=== PATIENT | male | born 1975 | race Hispanic/Latino ===

== ENCOUNTER 2016-11-25 14:04 | Inpatient (IN) | payer OTHER ==
[2016-11-25] MEDS ORDERED: NACL 0.9% 1000 ML 1,000 ML IV ONE ×2 (14:31→23:28)
[2016-11-25] MEDS ORDERED: ZOFRAN IV ONE (14:42)
[2016-11-25] MEDS ORDERED: SUBLIMAZE IV ONE (14:42)
[2016-11-25 15:23] LABS: Hemoglobin 14.2 gm/dl (11.8-15.2); Mean Corpuscular HGB Conc 34 % (32-34); Mean Corpuscular Hemoglobin 28 pg (28-32); Mean Corpuscular Volume 84 fl (84-94); Platelet Count 440 K/mm3 (140-440); Red Blood Count 4.99 M/mm3 (3.65-5.03)
[2016-11-25 15:31] LABS: White Blood Count 24.5 K/mm3 (4.5-11.0)
[2016-11-25 15:33] LABS: INR 1.07 (0.87-1.13)
[2016-11-25 15:34] LABS: Partial Thromboplastin Time 25.2 Sec. (24.2-36.6)
--- NOTE | 2016-11-25 15:37 | Emergency Department Report ---
ED GI Bleed HPI - General Chief complaint: GI Bleed Stated complaint: ABD PAIN Time Seen by Provider: 11/25/16 14:33 Source: patient, family, RN notes reviewed Mode of arrival: Ambulatory Limitations: No Limitations - History of Present Illness Initial comments: 40-year-old male presents to the emergency department being of abdominal pain and vomiting blood. Patient states he began having abdominal pain 2 days ago. Pain got worse this morning and he was seen at another emergency department. He was ultimately discharged and began vomiting coffee-ground emesis. Patient is complaining of sharp upper abdominal pain and is now also complaining of pressure in his chest. There are no other complaints. MD complaint: coffee ground emesis -: This morning Location: LUQ, epigastric Radiation: chest Severity scale (0 -10): 6 Quality: sharp Consistency: constant Improves with: none Worsens with: none Context: history of GI bleed, alcohol abuse Associated Symptoms: abdominal pain, nausea, vomiting Treatments Prior to Arrival: none - Related Data Home Medications Medication Instructions Recorded Confirmed Last Taken No Known Home Medications [No 11/25/16 11/25/16 Unknown Reported Home Medications] Allergies Allergy/AdvReac Type Severity Reaction Status Date / Time No Known Allergies Allergy Verified 11/25/16 14:37 ED Review of Systems ROS: Stated complaint: ABD PAIN Other details as noted in HPI Comment: All other systems reviewed and negative Cardiovascular: chest pain Gastrointestinal: abdominal pain, nausea, vomiting, hematemesis ED Past Medical Hx - Past Medical History Previous Medical History?: Yes Hx Hypertension: Yes Additional medical history: stomach ulcers - Surgical History Past Surgical History?: No - Family History Family history: no significant - Social History Smoking Status: Current Every Day Smoker Substance Use Type: Alcohol - Medications Home Medications: Home Medications Medication Instructions Recorded Confirmed Last Taken Type No Known Home Medications [No 11/25/16 11/25/16 Unknown History Reported Home Medications] ED Physical Exam - General Limitations: No Limitations General appearance: alert, in no apparent distress - Head Head exam: Present: atraumatic, normocephalic - Eye Eye exam: Present: normal appearance, PERRL, EOMI - ENT ENT exam: Present: normal orophraynx, mucous membranes moist, other (dried blood noted on the lips. There is also dark blood in the patient's malcolm) - Neck Neck exam: Present: normal inspection, full ROM. Absent: tenderness - Respiratory Respiratory exam: Present: normal lung sounds bilaterally. Absent: respiratory distress - Cardiovascular Cardiovascular Exam: Present: normal rhythm, tachycardia, normal heart sounds - GI/Abdominal GI/Abdominal exam: Present: soft, tenderness (mild epigastric and left upper quadrant tenderness to palpation), normal bowel sounds. Absent: distended, guarding, rebound - Extremities Exam Extremities exam: Present: normal inspection, full ROM. Absent: tenderness - Back Exam Back exam: Present: normal inspection, full ROM. Absent: tenderness - Neurological Exam Neurological exam: Present: alert, oriented X3. Absent: motor sensory deficit - Skin Skin exam: Present: warm, dry, intact ED Course Vital Signs 11/25/16 14:23 Temperature 98 F Pulse Rate 114 H Respiratory 16 Rate Blood Pressure 83/59 O2 Sat by Pulse 93 Oximetry ED Medical Decision Making - Lab Data Result diagrams: 11/25/16 14:54 11/25/16 14:54 - Medical Decision Making Lab results reviewed and discussed with the patient and family. After IV fluids , the patient's blood pressure has improved to a systolic of 130. He does remain tachycardic. Gastroenterology, Dr. Angel, is being consulted. Patient is to be admitted by the hospitalist. - Differential Diagnosis GI bleed, PUD, perforated ulcer, anemia Critical care attestation.: If time is entered above; I have spent that time in minutes in the direct care of this critically ill patient, excluding procedure time. ED Disposition Clinical Impression: Acute upper GI bleed Disposition: OP ADMITTED IP TO THIS HOSP Is pt being admited?: Yes Condition: Stable Forms: Accompanied Note Time of Disposition: 15:49
[2016-11-25 15:46] LABS: Alanine Aminotransferase 16 units/L (7-56); Albumin 4.1 g/dL (3.9-5); Albumin/Globulin Ratio 1.7 %; Alkaline Phosphatase 71 units/L (35-129); Anion Gap 17 mmol/L; Blood Urea Nitrogen 16 mg/dL (9-20); Carbon Dioxide 34 mmol/L (22-30); Chloride 96.1 mmol/L (98-107); Glucose 185 mg/dL (75-100); Lipase 12 units/L (13-60); Potassium 3.8 mmol/L (3.6-5.0); Sodium 143 mmol/L (137-145); Total Protein 6.5 g/dL (6.3-8.2)
--- NOTE | 2016-11-25 16:24 | XRay Report ---
Single view chest: History: Chest pain. Findings: Normal cardiomediastinal silhouette clear trachea is midline. No consolidation, pneumothorax or pleural effusion. Impression: No acute cardiopulmonary findings.
[2016-11-25 16:54] LABS: Basophils % (Manual) 0 % (0.0-1.8); Blastocytes % (Manual) 0 %; Eosinophils % (Manual) 0 % (0.0-4.3)
[2016-11-25 16:55] LABS: Anisocytosis 1+; Diff Status Complete; Large Platelets 1+; Platelet Estimate Consistent w Auto
--- NOTE | 2016-11-25 16:59 | Gastroenterology Consultation ---
History of Present Illness - Reason for Consult Consult date: 11/25/16 Hematemesis Requesting physician: CHU CRUZ - History of Present Illness The patient is a 40 yo male admitted with hematemesis. He is homeless and presented to [facility] earlier today for abdominal pain and hematemesis after substance abuse and EtOH abuse. He was told his labs were normal and was d/c' d. He came to our ER because he said he was still hurting. Today, after a dose of fentanyl, he appears comfortable without distress. He was hypotensive and tachycardic on admit, but it is not clear when his last meal was. He says he had EtOH to drink today but no solid food since at least yesterday. He denies Rx medications, and denies NSAIDs. He thinks he had an ulcer a few years ago, but does not describe an endoscopy as to how the dx was made. He denies chronic heartburn or dysphagia. He has no family hx of GI malignancy or ulcer. He has not blood in his stool. Past History Past Medical History: other (Ulcers, substance abuse) Past Surgical History: No surgical history Social history: smoking, alcohol abuse, other (Homeless, MJ abuse) Family history: no significant family history Medications and Allergies Allergies Allergy/AdvReac Type Severity Reaction Status Date / Time No Known Allergies Allergy Verified 11/25/16 14:37 Home Medications Medication Instructions Recorded Confirmed Last Taken Type No Known Home Medications [No 11/25/16 11/25/16 Unknown History Reported Home Medications] Active Meds: Active Medications Sodium Chloride (Nacl 0.9% 1000 Ml) 1,000 mls @ 250 mls/hr IV ONCE ONE Stop: 11/25/16 18:30 Last Admin: 11/25/16 15:38 Dose: 250 mls/hr Lorazepam (Ativan) 2 mg IV Q1H PRN PRN Reason: CIWA-Ar 8-15 Lorazepam (Ativan) 4 mg IV Q1H PRN PRN Reason: CIWA-Ar 16-25 Lorazepam (Ativan) 4 mg IV Q15MIN PRN PRN Reason: CIWA-Ar >25 Stop: 11/30/16 16:51 Multivitamins/Minerals (Theragran-M Tab) 1 each PO QDAY KAYLEE Pantoprazole Sodium (Protonix) 40 mg IV BID KAYLEE Review of Systems - Review of Systems All systems: negative (as noted in the HPI) Exam - Constitutional Vital Signs: Temp Pulse Resp BP Pulse Ox 98 F 114 H 16 83/59 93 11/25/16 14:23 11/25/16 14:23 11/25/16 14:23 11/25/16 14:23 11/25/16 14:23 General appearance: no acute distress, disheveled - EENT Eyes: PERRL, EOM intact ENT: hearing intact, no thrush, other (Dried blood in malcolm) - Neck Neck: supple, normal ROM - Respiratory Respiratory effort: normal Respiratory: bilateral: CTA - Cardiovascular Heart Rate: 120 Rhythm: regular Heart Sounds: Present: S1 & S2 Extremities: no ischemia, No edema - Gastrointestinal General gastrointestinal: Present: soft, non-tender, non-distended - Integumentary Integumentary: Present: clear, warm, dry - Neurologic Neurological: oriented to person, oriented to place, other (Slow to respond ( just rec'd fentanyl per ER)) - Labs CBC & Chem 7: 11/25/16 14:54 11/25/16 14:54 Assessment and Plan - Patient Problems (1) Hematemesis Current Visit: Yes Status: Acute Qualifiers: Nausea presence: N Plan to address problem: - Likely Diana Shepherd tear versus PUD, given his history. - The patient is a drinker, but labs not c/w ESLD. - Will start IV protonix, and rehydrate/treat with CIWA protocol. - If active bleeding, severe fall in hct, etc, will plan endoscopy. - If no severe bleeding, will use conservative management.
[2016-11-25] MEDS: PROTONIX IV SCH (21:15)
[2016-11-25] MEDS: ATIVAN IV PRN (21:15)
[2016-11-25] MEDS ORDERED: ZOFRAN IV PRN (23:21)
--- NOTE | 2016-11-25 23:36 | Event Note ---
Date: 11/25/16 See H/p in reports Upper GI bleed PUD
[2016-11-26] MEDS: ATIVAN IV PRN ×5 (00:24→20:32)
[2016-11-26] MEDS ORDERED: NACL 0.9% 1000 ML 1,000 ML IV SCH (01:00)
--- NOTE | 2016-11-26 01:42 | History and Physical Report ---
CHIEF COMPLAINT: Vomiting blood. HISTORY OF PRESENT ILLNESS: A 40-year-old male developed abdominal pain and vomiting blood. Abdominal pain for 2 days, got worse this morning. Vomiting coffee ground emesis. Has history of peptic ulcer disease. Pain is about 6 on a scale of 1-10. No aggravating or relieving factors. PAST MEDICAL HISTORY: Hypertension and stomach ulcers. PAST SURGICAL HISTORY: None. FAMILY HISTORY: No significant family history. SOCIAL HISTORY: Smokes about a pack a day. Alcohol on a regular basis. CURRENT MEDICATIONS: None. REVIEW OF SYSTEMS: CONSTITUTIONAL: No fever, no chills, no weight loss, no weight gain. HEENT: No sore throat, no postnasal drip. CARDIOVASCULAR AND RESPIRATORY: No shortness of breath, no chest pain, no wheezing, no palpitations, no diaphoresis. GASTROINTESTINAL: Nausea, vomiting blood present. Also dark stools. GENITOURINARY: No dysuria, no flank pain. MUSCULOSKELETAL: No muscle pains. CENTRAL NERVOUS SYSTEM: No syncope, no seizures. SKIN: No rashes. A 14-point review of systems done, otherwise negative. PHYSICAL EXAMINATION: GENERAL: Middle-aged male, cooperative during examination. . VITAL SIGNS: Blood pressure is 83/59, temperature 98, pulse 114, respirations 16. HEENT: Unremarkable. Pupils equal and reactive. Pale mucous membranes. NECK: Supple, no lymphadenopathy, no thyromegaly. LUNGS: Clear to auscultation and percussion. Good air entry. CARDIOVASCULAR: S1, S2 heard. No gallop, no murmur, no rub. Apical impulse in left fifth intercostal space and midclavicular line. ABDOMEN: Soft and benign. No hepatosplenomegaly. No guarding, no rigidity. Hernial orifices are normal. EXTREMITIES: Good pedal pulses. No pedal edema. CENTRAL NERVOUS SYSTEM: Alert and oriented x 4, nonfocal exam. LABORATORY DATA: White count is 24,400, H and H is 14.3 and 42.0, platelet count is 440. Electrolytes are normal. Glucose is 185. ASSESSMENT AND PLAN: 1. Acute upper gastrointestinal bleed. IV Protonix for the time being, IV fluids. GI consulted. They may not do upper endoscopy. 2. Generalized anxiety disorder. Continue anxiolytics. 3. Hypertension. Continue antihypertensives. 4. Peptic ulcer disease. Continue Protonix . 5. Deep vein thrombosis prophylaxis with SCDs. JOB# [id number] THO/MAK
[2016-11-26 08:18] LABS: Hematocrit 28.3 % (35.5-45.6); Hemoglobin 9.3 gm/dl (11.8-15.2); Mean Corpuscular HGB Conc 33 % (32-34); Mean Corpuscular Hemoglobin 29 pg (28-32); Mean Corpuscular Volume 86 fl (84-94); Platelet Count 343 K/mm3 (140-440); Red Blood Count 3.28 M/mm3 (3.65-5.03); Red Cell Distribution Width 14.1 % (13.2-15.2)
[2016-11-26 08:34] LABS: Anion Gap 16 mmol/L; BUN/Creatinine Ratio 73.75; Blood Urea Nitrogen 59 mg/dL (9-20); Calcium 8.7 mg/dL (8.4-10.2); Carbon Dioxide 24 mmol/L (22-30); Chloride 110.6 mmol/L (98-107); Glucose 135 mg/dL (75-100); Potassium 4.9 mmol/L (3.6-5.0); Sodium 146 mmol/L (137-145)
[2016-11-26 08:49] LABS: White Blood Count 23.3 K/mm3 (4.5-11.0)
[2016-11-26] MEDS: PROTONIX IV SCH ×2 (10:03→23:08)
[2016-11-26 10:28] LABS: Blastocytes % (Manual) 0 %; Eosinophils % (Manual) 0 % (0.0-4.3)
[2016-11-26 10:29] LABS: Anisocytosis 1+; Diff Status Complete; Platelet Estimate Cons
--- NOTE | 2016-11-26 12:05 | Progress Note ---
Assessment and Plan Assessment and plan: 40-year-old man with a past medical history of alcohol abuse who presented with coffee-ground emesis. Found to have alcohol withdrawal 1. Alcohol abuse and active alcohol withdrawal Continue CIWA protocol, patient still requiring large doses of IV Ativan. Continue IV fluids, continue thiamine and folate 2. Metabolic encephalopathy Due to alcohol withdrawal, treat underlying cause, continue hydration 3. Coffee-ground emesis/acute GI bleed GI consult appreciated, most likely due to Diana-Shepherd tear. Continue conservative management with PPI, and patient rebleeds will need EGD. 4. Acute blood loss anemia , Hg has dropped from 14 to 9, Continue to monitor hemoglobin, transfuse to keep hemoglobin above 8 5. 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 Hospitalist Physical - Physical exam Narrative exam: General: Appears ill HEENT: MMM, EOMI cardiac: S1-S2 heard lungs: clear to auscultation, abdomen: soft, nontender, nondistended bowel sounds positive extremities: no edema clubbing or cyanosis Skin: no rash or lesion Neuro: , moaning and groaning and tremulous, agitated, not obeying commands, not answering questions - Constitutional Vitals: Temp Pulse Resp BP Pulse Ox 98.4 F 129 H 20 128/69 99 11/26/16 11:20 11/26/16 11:20 11/26/16 11:20 11/26/16 11:20 11/26/16 11:20 Results - Labs CBC & Chem 7: 11/26/16 07:20 11/26/16 07:20 Labs: Laboratory Last Values WBC 23.3 K/mm3 (4.5-11.0) H 11/26/16 07:20 RBC 3.28 M/mm3 (3.65-5.03) L 11/26/16 07:20 Hgb 9.3 gm/dl (11.8-15.2) L D 11/26/16 07:20 Hct 28.3 % (35.5-45.6) L D 11/26/16 07:20 MCV 86 fl (84-94) 11/26/16 07:20 MCH 29 pg (28-32) 11/26/16 07:20 MCHC 33 % (32-34) 11/26/16 07:20 RDW 14.1 % (13.2-15.2) 11/26/16 07:20 Plt Count 343 K/mm3 (140-440) 11/26/16 07:20 Add Manual Diff Complete 11/26/16 07:20 Total Counted 100 11/26/16 07:20 Seg Neuts % (Manual) 78.0 % (40.0-70.0) H 11/26/16 07:20 Band Neutrophils % 0 % 11/26/16 07:20 Lymphocytes % (Manual) 16.0 % (13.4-35.0) 11/26/16 07:20 Reactive Lymphs % (Man) 0 % 11/26/16 07:20 Monocytes % (Manual) 6.0 % (0.0-7.3) 11/26/16 07:20 Eosinophils % (Manual) 0 % (0.0-4.3) 11/26/16 07:20 Basophils % (Manual) 0 % (0.0-1.8) 11/25/16 14:54 Metamyelocytes % 0 % 11/26/16 07:20 Myelocytes % 0 % 11/26/16 07:20 Promyelocytes % 0 % 11/26/16 07:20 Blast Cells % 0 % 11/26/16 07:20 Nucleated RBC % Not Reportable 11/26/16 07:20 Seg Neutrophils # Man 18.2 K/mm3 (1.8-7.7) H 11/26/16 07:20 Band Neutrophils # 0.0 K/mm3 11/26/16 07:20 Lymphocytes # (Manual) 3.7 K/mm3 (1.2-5.4) 11/26/16 07:20 Abs React Lymphs (Man) 0.0 K/mm3 11/26/16 07:20 Monocytes # (Manual) 1.4 K/mm3 (0.0-0.8) H 11/26/16 07:20 Eosinophils # (Manual) 0.0 K/mm3 (0.0-0.4) 11/26/16 07:20 Basophils # (Manual) 0.0 K/mm3 (0.0-0.1) 11/26/16 07:20 Metamyelocytes # 0.0 K/mm3 11/26/16 07:20 Myelocytes # 0.0 K/mm3 11/26/16 07:20 Promyelocytes # 0.0 K/mm3 11/26/16 07:20 Blast Cells # 0.0 K/mm3 11/26/16 07:20 WBC Morphology Not Reportable 11/26/16 07:20 Hypersegmented Neuts Not Reportable 11/26/16 07:20 Hyposegmented Neuts Not Reportable 11/26/16 07:20 Hypogranular Neuts Not Reportable 11/26/16 07:20 Smudge Cells Not Reportable 11/26/16 07:20 Toxic Granulation Not Reportable 11/26/16 07:20 Toxic Vacuolation Not Reportable 11/26/16 07:20 Dohle Bodies Not Reportable 11/26/16 07:20 Pelger-Huet Anomaly Not Reportable 11/26/16 07:20 Khang Rods Not Reportable 11/26/16 07:20 Platelet Estimate Cons 11/26/16 07:20 Clumped Platelets Not Reportable 11/26/16 07:20 Plt Clumps, EDTA Not Reportable 11/26/16 07:20 Large Platelets Not Reportable 11/26/16 07:20 Giant Platelets Not Reportable 11/26/16 07:20 Platelet Satelliting Not Reportable 11/26/16 07:20 Plt Morphology Comment Not Reportable 11/26/16 07:20 RBC Morphology Not Reportable 11/26/16 07:20 Dimorphic RBCs Not Reportable 11/26/16 07:20 Polychromasia Not Reportable 11/26/16 07:20 Hypochromasia Not Reportable 11/26/16 07:20 Poikilocytosis Not Reportable 11/26/16 07:20 Anisocytosis 1+ 11/26/16 07:20 Microcytosis Not Reportable 11/26/16 07:20 Macrocytosis Not Reportable 11/26/16 07:20 Spherocytes Not Reportable 11/26/16 07:20 Pappenheimer Bodies Not Reportable 11/26/16 07:20 Sickle Cells Not Reportable 11/26/16 07:20 Target Cells Not Reportable 11/26/16 07:20 Tear Drop Cells Not Reportable 11/26/16 07:20 Ovalocytes Not Reportable 11/26/16 07:20 Helmet Cells Not Reportable 11/26/16 07:20 Barr-Pritchett Bodies Not Reportable 11/26/16 07:20 Wilton Rings Not Reportable 11/26/16 07:20 Lena Cells Not Reportable 11/26/16 07:20 Bite Cells Not Reportable 11/26/16 07:20 Crenated Cell Not Reportable 11/26/16 07:20 Elliptocytes Not Reportable 11/26/16 07:20 Acanthocytes (Spur) Not Reportable 11/26/16 07:20 Rouleaux Not Reportable 11/26/16 07:20 Hemoglobin C Crystals Not Reportable 11/26/16 07:20 Schistocytes Not Reportable 11/26/16 07:20 Malaria parasites Not Reportable 11/26/16 07:20 Jean Bodies Not Reportable 11/26/16 07:20 Hem Pathologist Commnt No 11/26/16 07:20 PT 13.8 Sec. (12.2-14.9) 11/25/16 14:54 INR 1.07 (0.87-1.13) 11/25/16 14:54 APTT 25.2 Sec. (24.2-36.6) 11/25/16 14:54 Sodium 146 mmol/L (137-145) H 11/26/16 07:20 Potassium 4.9 mmol/L (3.6-5.0) D 11/26/16 07:20 Chloride 110.6 mmol/L (98-107) H 11/26/16 07:20 Carbon Dioxide 24 mmol/L (22-30) D 11/26/16 07:20 Anion Gap 16 mmol/L 11/26/16 07:20 BUN 59 mg/dL (9-20) H 11/26/16 07:20 Creatinine 0.8 mg/dL (0.8-1.5) 11/26/16 07:20 Estimated GFR > 60 ml/min 11/26/16 07:20 BUN/Creatinine Ratio 73.75 % 11/26/16 07:20 Glucose 135 mg/dL (75-100) H 11/26/16 07:20 Calcium 8.7 mg/dL (8.4-10.2) 11/26/16 07:20 Total Bilirubin 0.50 mg/dL (0.1-1.2) 11/25/16 14:54 AST 9 units/L (5-40) 11/25/16 14:54 ALT 16 units/L (7-56) 11/25/16 14:54 Alkaline Phosphatase 71 units/L (35-129) 11/25/16 14:54 Total Protein 6.5 g/dL (6.3-8.2) 11/25/16 14:54 Albumin 4.1 g/dL (3.9-5) 11/25/16 14:54 Albumin/Globulin Ratio 1.7 % 11/25/16 14:54 Lipase 12 units/L (13-60) L 11/25/16 14:54 Blood Type O POSITIVE 11/25/16 14:57 IKE Antibody Screen Negative 11/25/16 14:57
--- NOTE | 2016-11-26 15:13 | Gastroenterology Progress Note ---
Assessment and Plan 1. UGI bleed 2. AMS/alcohol withdrawal -will start PPI drip. monitor H/H. no signs of active bleeding at present time but noted increased BUN along with drop in hct. cont medical management/ supportive care given current mental status/active alcohol withdrawal symptoms. If he shows signs of overt bleeding, will need emergent EGD (pt would be unable to consent at present time and no known family members) Subjective Date of service: 11/26/16 Principal diagnosis: AMS, alcohol withdrawal, coffee ground emesis Interval history: pt sedated, in restraints. No reported n/v/bleeding episodes since admission. Objective - Exam Narrative Exam: Gen: sedated, minimally arousable, in 4 point restraints Mouth: black/old appearing coffee grounds in pt's oral mucosa, dry mucous membranes CV: tachycardic, s1 and s2 Lungs: increased respiratory rate, CTAB Abd: soft, nd, +bs Ext: no edema - Constitutional Vitals: Temp Pulse Resp BP Pulse Ox 98.1 F 138 H 28 H 116/58 95 11/26/16 11:30 11/26/16 11:30 11/26/16 11:30 11/26/16 11:30 11/26/16 11:30 - Labs CBC & Chem 7: 11/26/16 07:20 11/26/16 07:20 Labs: Laboratory Results - last 24 hr 11/26/16 11/26/16 07:20 07:20 WBC 23.3 H RBC 3.28 L Hgb 9.3 L D Hct 28.3 L D MCV 86 MCH 29 MCHC 33 RDW 14.1 Plt Count 343 Add Manual Diff Complete Total Counted 100 Seg Neuts % (Manual) 78.0 H Band Neutrophils % 0 Lymphocytes % (Manual) 16.0 Reactive Lymphs % (Man) 0 Monocytes % (Manual) 6.0 Eosinophils % (Manual) 0 Metamyelocytes % 0 Myelocytes % 0 Promyelocytes % 0 Blast Cells % 0 Nucleated RBC % Not Reportable Seg Neutrophils # Man 18.2 H Band Neutrophils # 0.0 Lymphocytes # (Manual) 3.7 Abs React Lymphs (Man) 0.0 Monocytes # (Manual) 1.4 H Eosinophils # (Manual) 0.0 Basophils # (Manual) 0.0 Metamyelocytes # 0.0 Myelocytes # 0.0 Promyelocytes # 0.0 Blast Cells # 0.0 WBC Morphology Not Reportable Hypersegmented Neuts Not Reportable Hyposegmented Neuts Not Reportable Hypogranular Neuts Not Reportable Smudge Cells Not Reportable Toxic Granulation Not Reportable Toxic Vacuolation Not Reportable Dohle Bodies Not Reportable Pelger-Huet Anomaly Not Reportable Khang Rods Not Reportable Platelet Estimate Cons Clumped Platelets Not Reportable Plt Clumps, EDTA Not Reportable Large Platelets Not Reportable Giant Platelets Not Reportable Platelet Satelliting Not Reportable Plt Morphology Comment Not Reportable RBC Morphology Not Reportable Dimorphic RBCs Not Reportable Polychromasia Not Reportable Hypochromasia Not Reportable Poikilocytosis Not Reportable Anisocytosis 1+ Microcytosis Not Reportable Macrocytosis Not Reportable Spherocytes Not Reportable Pappenheimer Bodies Not Reportable Sickle Cells Not Reportable Target Cells Not Reportable Tear Drop Cells Not Reportable Ovalocytes Not Reportable Helmet Cells Not Reportable Barr-Acres Green Bodies Not Reportable [place] Rings Not Reportable Reagan Cells Not Reportable Bite Cells Not Reportable Crenated Cell Not Reportable Elliptocytes Not Reportable Acanthocytes (Spur) Not Reportable Rouleaux Not Reportable Hemoglobin C Crystals Not Reportable Schistocytes Not Reportable Malaria parasites Not Reportable Jean Bodies Not Reportable Hem Pathologist Commnt No Sodium 146 H Potassium 4.9 D Chloride 110.6 H Carbon Dioxide 24 D Anion Gap 16 BUN 59 H Creatinine 0.8 Estimated GFR > 60 BUN/Creatinine Ratio 73.75 Glucose 135 H Calcium 8.7
[2016-11-26] MEDS: PROTONIX 80 MG in NACL 0.9% 100 ML IV SCH (16:12)
[2016-11-26] MEDS: VITAMIN B-1 100 MG in NACL 0.9% 50 ML IV SCH (16:55)
[2016-11-26] MEDS: FOLVITE 1 MG in NACL 0.9% 50 ML IV SCH (17:11)
--- NOTE | 2016-11-26 17:26 | Admit Criteria Form ---
Admission Criteria Documentation: GASTROINTESTINAL BLEEDING, UPPER Clinical Indications for Admission to Inpatient Care ( Place 'X' for any and all applicable criteria): Admission is indicated for ANY ONE of the following(1)(2)(3)(4)(5)(6): [ X]I. Active bleeding (eg, fresh voluminous blood in emesis or nasogastric aspirate) [ ]II. Associated conditions requiring hospitalization (eg, perforation, obstruction from ulcer) [ ]III. Inpatient admission required rather than observation care (Also use Gastrointestinal Bleeding, Upper: Observation Care as appropriate) because of ANY ONE of the following: [ ]a) Hemodynamic instability that is severe or persistent [ ]b) Anemia requiring inpatient admission as indicated by ALL of the following: [ ]1) Presence of significant clinical finding indicated by ANY ONE of the following: [ ]A. Tachycardia for age [ ]B. Orthostatic vital sign changes [ ]C. Cognitive impairment [ ]D. Heart failure [ ]E. Chest pain [ ]F. Exertional dyspnea [ ]G. Other findings suggesting inadequate perfusion (eg, peripheral or myocardial ischemia, end organ dysfunction) [ ]2) Initial (eg, emergency department, observation care) treatment with transfusion or volume replacement is judged inappropriate (due to severity of the finding) or has been ineffective [ ]c) Severe pain requiring acute inpatient management [ ]d) High-risk low platelet count [ ]e) IV fluid to replace significant ongoing losses (greater than 3 L/m2 per day) [ ]f) Immediate inpatient surgery [ ]g) Other condition, treatment or monitoring requiring inpatient admission [ ]IV. Severe liver disease (eg, cirrhosis) [ ]V. Significant active comorbid disease [ ]. Anticoagulation therapy [ ]VII. High-risk endoscopic features (arterial bleeding, adherent clot, nonbleeding visible vessel, varices, flat red spots, ulcer size greater than 2 cm, or portal hypertensive gastropathy) [ ]VIII. Previous aortic graft placement or known aortic aneurysm [ ]IX. Coagulopathy [ ]X. Syncope Extended stay beyond goal length of stay may be needed for(1)(2): [ ]a) Emergency surgery [ ]b) Varices [ ]c) Coagulation abnormalities [ ]d) Recurrent, obscure, or persistent bleeding or continued Hemodynamic instability [ ]e) Associated conditions requiring surgery (eg, perforated gastric ulcer, gastric outlet obstruction) [ ]f) Active comorbidities (eg, renal insufficiency, heart failure, pre- existing liver disease) The original [facility] [employer] content created by [facility] has been revised. The portions of the content which have been revised are identified through the use of italic text or in bold, and [facility] has neither reviewed nor approved the modified material. All other unmodified content is copyright [facility] [employer]. Please see references footnoted in the original [facility] [employer] edition 2016 Admission Criteria Met: Yes
[2016-11-26] MEDS: D5/0.45NS 1,000 ML IV SCH (20:28)
[2016-11-27] MEDS: PROTONIX 80 MG in NACL 0.9% 100 ML IV SCH ×2 (02:01→14:28)
[2016-11-27 07:25] LABS: Eosinophils % (Auto) 1.9 % (0.0-4.3); Hematocrit 28.3 % (35.5-45.6); Hemoglobin 9.4 gm/dl (11.8-15.2); Mean Corpuscular HGB Conc 33 % (32-34); Mean Corpuscular Hemoglobin 29 pg (28-32); Mean Corpuscular Volume 87 fl (84-94); Platelet Count 296 K/mm3 (140-440); Red Blood Count 3.26 M/mm3 (3.65-5.03); White Blood Count 18.7 K/mm3 (4.5-11.0)
[2016-11-27 07:28] LABS: Anion Gap 16 mmol/L; Blood Urea Nitrogen 16 mg/dL (9-20); Calcium 8.8 mg/dL (8.4-10.2); Carbon Dioxide 23 mmol/L (22-30); Chloride 104.3 mmol/L (98-107); Glucose 130 mg/dL (75-100); Potassium 4.5 mmol/L (3.6-5.0); Sodium 139 mmol/L (137-145)
--- NOTE | 2016-11-27 08:15 | Progress Note ---
Assessment and Plan Assessment and plan: 40-year-old man with a past medical history of alcohol abuse who presented with coffee-ground emesis. Found to have alcohol withdrawal 1. Alcohol abuse and active alcohol withdrawal Continue CIWA protocol, patient still requiring large doses of IV Ativan. Continue IV fluids, continue thiamine and folate 2. Metabolic encephalopathy Due to alcohol Alcohol withdrawal, treat underlying cause, continue hydration 3. Coffee-ground emesis/acute GI Bleed GI consult appreciated, most likely due to Diana-Shepherd tear. Continue conservative management with PPI, and patient rebleeds will need EGD. 4. Acute blood loss anemia , Hg has dropped from 14 to 9, Continue to monitor hemoglobin, transfuse to keep hemoglobin above 8 5. 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 Hypernatremia Has resolved with IV fluid hydration. History Interval history: Patient continues to be confused, has been agitated, tremulous. Requiring multiple doses of IV Ativan Hospitalist Physical - Physical exam Narrative exam: General: Appears ill HEENT: MMM, EOMI cardiac: S1-S2 heard lungs: clear to auscultation, abdomen: soft, nontender, nondistended bowel sounds positive extremities: no edema clubbing or cyanosis Skin: no rash or lesion Neuro: , Calm, oriented 2, knows the president, thinks his 1991. Lacks insights currently, somewhat confused, mumbling and rambling - Constitutional Vitals: Temp Pulse Resp BP Pulse Ox 98 F 111 H 20 100/64 93 11/27/16 04:37 11/27/16 04:37 11/27/16 04:37 11/27/16 04:37 11/27/16 04:37 Results - Labs CBC & Chem 7: 11/27/16 06:47 11/27/16 06:47 Labs: Laboratory Last Values WBC 18.7 K/mm3 (4.5-11.0) H 11/27/16 06:47 RBC 3.26 M/mm3 (3.65-5.03) L 11/27/16 06:47 Hgb 9.4 gm/dl (11.8-15.2) L 11/27/16 06:47 Hct 28.3 % (35.5-45.6) L 11/27/16 06:47 MCV 87 fl (84-94) 11/27/16 06:47 MCH 29 pg (28-32) 11/27/16 06:47 MCHC 33 % (32-34) 11/27/16 06:47 RDW 14.0 % (13.2-15.2) 11/27/16 06:47 Plt Count 296 K/mm3 (140-440) 11/27/16 06:47 Lymph % (Auto) 18.2 % (13.4-35.0) 11/27/16 06:47 [place] % (Auto) 6.1 % (0.0-7.3) 11/27/16 06:47 Eos % (Auto) 1.9 % (0.0-4.3) 11/27/16 06:47 Baso % (Auto) 1.0 % (0.0-1.8) 11/27/16 06:47 Lymph # 3.4 K/mm3 (1.2-5.4) 11/27/16 06:47 [place] # 1.1 K/mm3 (0.0-0.8) H 11/27/16 06:47 Eos # 0.4 K/mm3 (0.0-0.4) 11/27/16 06:47 Baso # 0.2 K/mm3 (0.0-0.1) H 11/27/16 06:47 Add Manual Diff Complete 11/26/16 07:20 Total Counted 100 11/26/16 07:20 Seg Neutrophils % 72.8 % (40.0-70.0) H 11/27/16 06:47 Seg Neuts % (Manual) 78.0 % (40.0-70.0) H 11/26/16 07:20 Band Neutrophils % 0 % 11/26/16 07:20 Lymphocytes % (Manual) 16.0 % (13.4-35.0) 11/26/16 07:20 Reactive Lymphs % (Man) 0 % 11/26/16 07:20 Monocytes % (Manual) 6.0 % (0.0-7.3) 11/26/16 07:20 Eosinophils % (Manual) 0 % (0.0-4.3) 11/26/16 07:20 Basophils % (Manual) 0 % (0.0-1.8) 11/25/16 14:54 Metamyelocytes % 0 % 11/26/16 07:20 Myelocytes % 0 % 11/26/16 07:20 Promyelocytes % 0 % 11/26/16 07:20 Blast Cells % 0 % 11/26/16 07:20 Nucleated RBC % Not Reportable 11/26/16 07:20 Seg Neutrophils # 13.6 K/mm3 (1.8-7.7) H 11/27/16 06:47 Seg Neutrophils # Man 18.2 K/mm3 (1.8-7.7) H 11/26/16 07:20 Band Neutrophils # 0.0 K/mm3 11/26/16 07:20 Lymphocytes # (Manual) 3.7 K/mm3 (1.2-5.4) 11/26/16 07:20 Abs React Lymphs (Man) 0.0 K/mm3 11/26/16 07:20 Monocytes # (Manual) 1.4 K/mm3 (0.0-0.8) H 11/26/16 07:20 Eosinophils # (Manual) 0.0 K/mm3 (0.0-0.4) 11/26/16 07:20 Basophils # (Manual) 0.0 K/mm3 (0.0-0.1) 11/26/16 07:20 Metamyelocytes # 0.0 K/mm3 11/26/16 07:20 Myelocytes # 0.0 K/mm3 11/26/16 07:20 Promyelocytes # 0.0 K/mm3 11/26/16 07:20 Blast Cells # 0.0 K/mm3 11/26/16 07:20 WBC Morphology Not Reportable 11/26/16 07:20 Hypersegmented Neuts Not Reportable 11/26/16 07:20 Hyposegmented Neuts Not Reportable 11/26/16 07:20 Hypogranular Neuts Not Reportable 11/26/16 07:20 Smudge Cells Not Reportable 11/26/16 07:20 Toxic Granulation Not Reportable 11/26/16 07:20 Toxic Vacuolation Not Reportable 11/26/16 07:20 Dohle Bodies Not Reportable 11/26/16 07:20 Pelger-Huet Anomaly Not Reportable 11/26/16 07:20 [place] Rods Not Reportable 11/26/16 07:20 Platelet Estimate Cons 11/26/16 07:20 Clumped Platelets Not Reportable 11/26/16 07:20 Plt Clumps, EDTA Not Reportable 11/26/16 07:20 Large Platelets Not Reportable 11/26/16 07:20 Giant Platelets Not Reportable 11/26/16 07:20 Platelet Satelliting Not Reportable 11/26/16 07:20 Plt Morphology Comment Not Reportable 11/26/16 07:20 RBC Morphology Not Reportable 11/26/16 07:20 Dimorphic RBCs Not Reportable 11/26/16 07:20 Polychromasia Not Reportable 11/26/16 07:20 Hypochromasia Not Reportable 11/26/16 07:20 Poikilocytosis Not Reportable 11/26/16 07:20 Anisocytosis 1+ 11/26/16 07:20 Microcytosis Not Reportable 11/26/16 07:20 Macrocytosis Not Reportable 11/26/16 07:20 Spherocytes Not Reportable 11/26/16 07:20 Pappenheimer Bodies Not Reportable 11/26/16 07:20 Sickle Cells Not Reportable 11/26/16 07:20 Target Cells Not Reportable 11/26/16 07:20 Tear Drop Cells Not Reportable 11/26/16 07:20 Ovalocytes Not Reportable 11/26/16 07:20 Helmet Cells Not Reportable 11/26/16 07:20 Barr-[place] Bodies Not Reportable 11/26/16 07:20 [place] Rings Not Reportable 11/26/16 07:20 [place] Cells Not Reportable 11/26/16 07:20 Bite Cells Not Reportable 11/26/16 07:20 Crenated Cell Not Reportable 11/26/16 07:20 Elliptocytes Not Reportable 11/26/16 07:20 Acanthocytes (Spur) Not Reportable 11/26/16 07:20 Rouleaux Not Reportable 11/26/16 07:20 Hemoglobin C Crystals Not Reportable 11/26/16 07:20 Schistocytes Not Reportable 11/26/16 07:20 Malaria parasites Not Reportable 11/26/16 07:20 Jean Bodies Not Reportable 11/26/16 07:20 Hem Pathologist Commnt No 11/26/16 07:20 PT 13.8 Sec. (12.2-14.9) 11/25/16 14:54 INR 1.07 (0.87-1.13) 11/25/16 14:54 APTT 25.2 Sec. (24.2-36.6) 11/25/16 14:54 Sodium 139 mmol/L (137-145) 11/27/16 06:47 Potassium 4.5 mmol/L (3.6-5.0) 11/27/16 06:47 Chloride 104.3 mmol/L (98-107) 11/27/16 06:47 Carbon Dioxide 23 mmol/L (22-30) 11/27/16 06:47 Anion Gap 16 mmol/L 11/27/16 06:47 BUN 16 mg/dL (9-20) 11/27/16 06:47 Creatinine 0.5 mg/dL (0.8-1.5) L 11/27/16 06:47 Estimated GFR > 60 ml/min 11/27/16 06:47 BUN/Creatinine Ratio 32.00 % 11/27/16 06:47 Glucose 130 mg/dL (75-100) H 11/27/16 06:47 Calcium 8.8 mg/dL (8.4-10.2) 11/27/16 06:47 Phosphorus 2.30 mg/dL (2.5-4.5) L 11/27/16 06:47 Magnesium 2.00 mg/dL (1.7-2.3) 11/27/16 06:47 Total Bilirubin 0.50 mg/dL (0.1-1.2) 11/25/16 14:54 AST 9 units/L (5-40) 11/25/16 14:54 ALT 16 units/L (7-56) 11/25/16 14:54 Alkaline Phosphatase 71 units/L (35-129) 11/25/16 14:54 Total Protein 6.5 g/dL (6.3-8.2) 11/25/16 14:54 Albumin 4.1 g/dL (3.9-5) 11/25/16 14:54 Albumin/Globulin Ratio 1.7 % 11/25/16 14:54 Lipase 12 units/L (13-60) L 11/25/16 14:54 Blood Type O POSITIVE 11/25/16 14:57 IKE Antibody Screen Negative 11/25/16 14:57
[2016-11-27] MEDS: ATIVAN IV PRN ×4 (08:49→21:13)
[2016-11-27] MEDS: VITAMIN B-1 100 MG in NACL 0.9% 50 ML IV SCH (09:28)
[2016-11-27] MEDS: THERAGRAN-M Tab PO SCH ×2 (09:28→19:25)
[2016-11-27] MEDS: FOLVITE 1 MG in NACL 0.9% 50 ML IV SCH (09:29)
--- NOTE | 2016-11-27 20:27 | Gastroenterology Progress Note ---
Assessment and Plan 1. alcohol withdrawal 2. coffee ground emesis - hct stable overnight. no signs of overt bleeding since hospitalization. EGD once mental status improved (possibly tomorrow) or signs of bleeding. Cont IV PPI Subjective Date of service: 11/27/16 Principal diagnosis: AMS, alcohol withdrawal, coffee ground emesis Interval history: pt remains in restraints and sedated. arousable today, asking "why am I here", but not able to carry conversation or answer other questions Objective - Exam Narrative Exam: Gen: sedated, in restraints, arousable CV: RRR, no murmurs Lungs: CTAB, non labored Abd: soft, nt, nd, +bs - Constitutional Vitals: Temp Pulse Resp BP Pulse Ox 97.9 F 92 H 18 112/60 97 11/27/16 18:24 11/27/16 18:24 11/27/16 18:24 11/27/16 18:24 11/27/16 18:24 - Labs CBC & Chem 7: 11/27/16 06:47 11/27/16 06:47 Labs: Laboratory Results - last 24 hr 11/27/16 11/27/16 06:47 06:47 WBC 18.7 H RBC 3.26 L Hgb 9.4 L Hct 28.3 L MCV 87 MCH 29 MCHC 33 RDW 14.0 Plt Count 296 Lymph % (Auto) 18.2 [place] % (Auto) 6.1 Eos % (Auto) 1.9 Baso % (Auto) 1.0 Lymph # 3.4 [place] # 1.1 H Eos # 0.4 Baso # 0.2 H Seg Neutrophils % 72.8 H Seg Neutrophils # 13.6 H Sodium 139 Potassium 4.5 Chloride 104.3 Carbon Dioxide 23 Anion Gap 16 BUN 16 Creatinine 0.5 L Estimated GFR > 60 BUN/Creatinine Ratio 32.00 Glucose 130 H Calcium 8.8 Phosphorus 2.30 L Magnesium 2.00
[2016-11-27] MEDS: D5/0.45NS 1,000 ML IV SCH (21:13)
[2016-11-28] MEDS: PROTONIX 80 MG in NACL 0.9% 100 ML IV SCH ×3 (01:16→22:47)
[2016-11-28] MEDS: ATIVAN IV PRN ×6 (03:17→19:50)
[2016-11-28] MEDS: D5/0.45NS 1,000 ML IV SCH (05:47)
[2016-11-28 05:59] LABS: Blood Urea Nitrogen 7 mg/dL (9-20); Calcium 8.7 mg/dL (8.4-10.2); Carbon Dioxide 25 mmol/L (22-30); Glucose 129 mg/dL (75-100)
[2016-11-28 06:00] LABS: Anion Gap 13 mmol/L; Chloride 100.7 mmol/L (98-107); Potassium 3.5 mmol/L (3.6-5.0); Sodium 135 mmol/L (137-145)
[2016-11-28] MEDS ORDERED: DIPRIVAN 10 MG/ML IV ONE ×2 (07:18)
--- NOTE | 2016-11-28 07:32 | Anesthesia Consultation ---
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 Extremely combative upon admission to GI - spitting, verbal assault, etc. Consult to be obtained by appropriate family member.
--- NOTE | 2016-11-28 08:07 | Anesthesia Day of Surgery ---
Anesthesia Day of Surgery - Day of Surgery Patient Examined: Yes Patient H&P Reviewed: Yes Patient is NPO: Yes
--- NOTE | 2016-11-28 08:53 | Gastroenterology Progress Note ---
Assessment and Plan 1. alcohol withdrawal 2. coffee ground emesis - no bleeding since admission, H/H has remained stable. Patient unable to consent for himself and have been unsuccessful reaching his mother for consent. Will hold off on EGD at this time. Will follow from distance, please call back when mental status improves and if pt able to consent/wishes to proceed with procedure, or if any signs of further bleeding. Subjective Date of service: 11/28/16 Principal diagnosis: AMS, alcohol withdrawal, coffee ground emesis Interval history: pt seen in GI lab. he remains confused/sedated, unable to consent for himself. He was spitting at GI staff members. His aunt was contacted who provided his mother's number for consent purposes, however she has not been able to be reached after multiple attempts this morning. No reported signs of bleeding, H/h remains stable. Objective - Exam Narrative Exam: Gen: sedated, confused, not able to provide history CV: RRR Lungs: CTAB Abd: soft, nd, +bs - Constitutional Vitals: Temp Pulse Resp BP Pulse Ox 98.1 F 102 H 16 109/45 94 11/28/16 08:04 11/28/16 08:04 11/28/16 08:04 11/28/16 08:04 11/28/16 08:04 - Labs CBC & Chem 7: 11/27/16 06:47 11/28/16 04:52 Labs: Laboratory Results - last 24 hr 11/28/16 04:52 Sodium 135 L Potassium 3.5 L D Chloride 100.7 Carbon Dioxide 25 Anion Gap 13 BUN 7 L Creatinine 0.5 L Estimated GFR > 60 BUN/Creatinine Ratio 14.00 Glucose 129 H Calcium 8.7
--- NOTE | 2016-11-28 10:09 | Progress Note ---
Assessment and Plan Assessment and plan: 40-year-old man with a past medical history of alcohol abuse who presented with coffee-ground emesis. Found to have alcohol withdrawal 1. Alcohol abuse and active alcohol withdrawal Continue CIWA protocol, patient still requiring large doses of IV Ativan, will put on Librium and Haldol. Continue IV fluids, continue thiamine and folate 2. Metabolic encephalopathy Due to alcohol Alcohol withdrawal, treat underlying cause, continue hydration, check NH3 level 3. Coffee-ground emesis/acute GI Bleed GI consult appreciated, most likely due to Diana-Shepherd tear. Continue conservative management with PPI, and patient rebleeds will need EGD. Unfortunately unable to concentrate due to mental status, and his mother could not be reached by phone 4. Acute blood loss anemia , Hg has dropped from 14 to 9, Continue to monitor hemoglobin, transfuse to keep hemoglobin above 8 5. 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 Hypernatremia Has resolved with IV fluid hydration. 7. Hypokalemia Replete IV History Interval history: Patient continues to be confused, has been agitated, tremulous. Requiring multiple doses of IV Ativan Hospitalist Physical - Physical exam Narrative exam: General: Appears ill HEENT: MMM, EOMI cardiac: S1-S2 heard lungs: clear to auscultation, abdomen: soft, nontender, nondistended bowel sounds positive extremities: no edema clubbing or cyanosis Skin: no rash or lesion Neuro: , Agitated, verbally abusive, oriented only to person. Lacks insights currently, somewhat confused, mumbling and rambling - Constitutional Vitals: Temp Pulse Resp BP Pulse Ox 98.1 F 102 H 16 109/45 94 11/28/16 08:04 11/28/16 08:04 11/28/16 08:04 11/28/16 08:04 11/28/16 08:04 Results - Labs CBC & Chem 7: 11/27/16 06:47 11/28/16 04:52 Labs: Laboratory Last Values WBC 18.7 K/mm3 (4.5-11.0) H 11/27/16 06:47 RBC 3.26 M/mm3 (3.65-5.03) L 11/27/16 06:47 Hgb 9.4 gm/dl (11.8-15.2) L 11/27/16 06:47 Hct 28.3 % (35.5-45.6) L 11/27/16 06:47 MCV 87 fl (84-94) 11/27/16 06:47 MCH 29 pg (28-32) 11/27/16 06:47 MCHC 33 % (32-34) 11/27/16 06:47 RDW 14.0 % (13.2-15.2) 11/27/16 06:47 Plt Count 296 K/mm3 (140-440) 11/27/16 06:47 Lymph % (Auto) 18.2 % (13.4-35.0) 11/27/16 06:47 [place] % (Auto) 6.1 % (0.0-7.3) 11/27/16 06:47 Eos % (Auto) 1.9 % (0.0-4.3) 11/27/16 06:47 Baso % (Auto) 1.0 % (0.0-1.8) 11/27/16 06:47 Lymph # 3.4 K/mm3 (1.2-5.4) 11/27/16 06:47 [place] # 1.1 K/mm3 (0.0-0.8) H 11/27/16 06:47 Eos # 0.4 K/mm3 (0.0-0.4) 11/27/16 06:47 Baso # 0.2 K/mm3 (0.0-0.1) H 11/27/16 06:47 Add Manual Diff Complete 11/26/16 07:20 Total Counted 100 11/26/16 07:20 Seg Neutrophils % 72.8 % (40.0-70.0) H 11/27/16 06:47 Seg Neuts % (Manual) 78.0 % (40.0-70.0) H 11/26/16 07:20 Band Neutrophils % 0 % 11/26/16 07:20 Lymphocytes % (Manual) 16.0 % (13.4-35.0) 11/26/16 07:20 Reactive Lymphs % (Man) 0 % 11/26/16 07:20 Monocytes % (Manual) 6.0 % (0.0-7.3) 11/26/16 07:20 Eosinophils % (Manual) 0 % (0.0-4.3) 11/26/16 07:20 Basophils % (Manual) 0 % (0.0-1.8) 11/25/16 14:54 Metamyelocytes % 0 % 11/26/16 07:20 Myelocytes % 0 % 11/26/16 07:20 Promyelocytes % 0 % 11/26/16 07:20 Blast Cells % 0 % 11/26/16 07:20 Nucleated RBC % Not Reportable 11/26/16 07:20 Seg Neutrophils # 13.6 K/mm3 (1.8-7.7) H 11/27/16 06:47 Seg Neutrophils # Man 18.2 K/mm3 (1.8-7.7) H 11/26/16 07:20 Band Neutrophils # 0.0 K/mm3 11/26/16 07:20 Lymphocytes # (Manual) 3.7 K/mm3 (1.2-5.4) 11/26/16 07:20 Abs React Lymphs (Man) 0.0 K/mm3 11/26/16 07:20 Monocytes # (Manual) 1.4 K/mm3 (0.0-0.8) H 11/26/16 07:20 Eosinophils # (Manual) 0.0 K/mm3 (0.0-0.4) 11/26/16 07:20 Basophils # (Manual) 0.0 K/mm3 (0.0-0.1) 11/26/16 07:20 Metamyelocytes # 0.0 K/mm3 11/26/16 07:20 Myelocytes # 0.0 K/mm3 11/26/16 07:20 Promyelocytes # 0.0 K/mm3 11/26/16 07:20 Blast Cells # 0.0 K/mm3 11/26/16 07:20 WBC Morphology Not Reportable 11/26/16 07:20 Hypersegmented Neuts Not Reportable 11/26/16 07:20 Hyposegmented Neuts Not Reportable 11/26/16 07:20 Hypogranular Neuts Not Reportable 11/26/16 07:20 Smudge Cells Not Reportable 11/26/16 07:20 Toxic Granulation Not Reportable 11/26/16 07:20 Toxic Vacuolation Not Reportable 11/26/16 07:20 Dohle Bodies Not Reportable 11/26/16 07:20 Pelger-Huet Anomaly Not Reportable 11/26/16 07:20 Khang Rods Not Reportable 11/26/16 07:20 Platelet Estimate Cons 11/26/16 07:20 Clumped Platelets Not Reportable 11/26/16 07:20 Plt Clumps, EDTA Not Reportable 11/26/16 07:20 Large Platelets Not Reportable 11/26/16 07:20 Giant Platelets Not Reportable 11/26/16 07:20 Platelet Satelliting Not Reportable 11/26/16 07:20 Plt Morphology Comment Not Reportable 11/26/16 07:20 RBC Morphology Not Reportable 11/26/16 07:20 Dimorphic RBCs Not Reportable 11/26/16 07:20 Polychromasia Not Reportable 11/26/16 07:20 Hypochromasia Not Reportable 11/26/16 07:20 Poikilocytosis Not Reportable 11/26/16 07:20 Anisocytosis 1+ 11/26/16 07:20 Microcytosis Not Reportable 11/26/16 07:20 Macrocytosis Not Reportable 11/26/16 07:20 Spherocytes Not Reportable 11/26/16 07:20 Pappenheimer Bodies Not Reportable 11/26/16 07:20 Sickle Cells Not Reportable 11/26/16 07:20 Target Cells Not Reportable 11/26/16 07:20 Tear Drop Cells Not Reportable 11/26/16 07:20 Ovalocytes Not Reportable 11/26/16 07:20 Helmet Cells Not Reportable 11/26/16 07:20 Barr-[place] Bodies Not Reportable 11/26/16 07:20 [place] Rings Not Reportable 11/26/16 07:20 [place] Cells Not Reportable 11/26/16 07:20 Bite Cells Not Reportable 11/26/16 07:20 Crenated Cell Not Reportable 11/26/16 07:20 Elliptocytes Not Reportable 11/26/16 07:20 Acanthocytes (Spur) Not Reportable 11/26/16 07:20 Rouleaux Not Reportable 11/26/16 07:20 Hemoglobin C Crystals Not Reportable 11/26/16 07:20 Schistocytes Not Reportable 11/26/16 07:20 Malaria parasites Not Reportable 11/26/16 07:20 Jean Bodies Not Reportable 11/26/16 07:20 Hem Pathologist Commnt No 11/26/16 07:20 PT 13.8 Sec. (12.2-14.9) 11/25/16 14:54 INR 1.07 (0.87-1.13) 11/25/16 14:54 APTT 25.2 Sec. (24.2-36.6) 11/25/16 14:54 Sodium 135 mmol/L (137-145) L 11/28/16 04:52 Potassium 3.5 mmol/L (3.6-5.0) L D 11/28/16 04:52 Chloride 100.7 mmol/L (98-107) 11/28/16 04:52 Carbon Dioxide 25 mmol/L (22-30) 11/28/16 04:52 Anion Gap 13 mmol/L 11/28/16 04:52 BUN 7 mg/dL (9-20) L 11/28/16 04:52 Creatinine 0.5 mg/dL (0.8-1.5) L 11/28/16 04:52 Estimated GFR > 60 ml/min 11/28/16 04:52 BUN/Creatinine Ratio 14.00 % 11/28/16 04:52 Glucose 129 mg/dL (75-100) H 11/28/16 04:52 Calcium 8.7 mg/dL (8.4-10.2) 11/28/16 04:52 Phosphorus 2.30 mg/dL (2.5-4.5) L 11/27/16 06:47 Magnesium 2.00 mg/dL (1.7-2.3) 11/27/16 06:47 Total Bilirubin 0.50 mg/dL (0.1-1.2) 11/25/16 14:54 AST 9 units/L (5-40) 11/25/16 14:54 ALT 16 units/L (7-56) 11/25/16 14:54 Alkaline Phosphatase 71 units/L (35-129) 11/25/16 14:54 Total Protein 6.5 g/dL (6.3-8.2) 11/25/16 14:54 Albumin 4.1 g/dL (3.9-5) 11/25/16 14:54 Albumin/Globulin Ratio 1.7 % 11/25/16 14:54 Lipase 12 units/L (13-60) L 11/25/16 14:54 Blood Type O POSITIVE 11/25/16 14:57 IKE Antibody Screen Negative 11/25/16 14:57
[2016-11-28] MEDS: VITAMIN B-1 100 MG in NACL 0.9% 50 ML IV SCH (10:47)
[2016-11-28] MEDS: FOLVITE 1 MG in NACL 0.9% 50 ML IV SCH (10:48)
[2016-11-28] MEDS: THERAGRAN-M Tab PO SCH (10:49)
[2016-11-28] MEDS ORDERED: LIBRIUM PO SCH (12:00)
[2016-11-28] MEDS: LIBRIUM PO SCH ×2 (12:47→17:46)
[2016-11-28] MEDS: HALDOL IV PRN ×2 (14:58→18:15)
[2016-11-28] MEDS: NACL 0.9% 1000 ML 1,000 ML IV SCH (17:46)
[2016-11-28] MEDS: KCL 10MEQ/100ML 10 MEQ/100 ML BAG IV SCH ×2 (21:41→22:49)
[2016-11-29] MEDS: KCL 10MEQ/100ML 10 MEQ/100 ML BAG IV SCH ×2 (00:16→01:21)
[2016-11-29] MEDS: LIBRIUM PO SCH ×3 (01:27→14:23)
[2016-11-29 05:46] LABS: Basophils % (Auto) 1.1 % (0.0-1.8); Eosinophils % (Auto) 4.6 % (0.0-4.3); Hematocrit 26.8 % (35.5-45.6); Hemoglobin 9.3 gm/dl (11.8-15.2); Mean Corpuscular HGB Conc 35 % (32-34); Mean Corpuscular Hemoglobin 30 pg (28-32); Mean Corpuscular Volume 86 fl (84-94); Red Blood Count 3.09 M/mm3 (3.65-5.03); Red Cell Distribution Width 14.1 % (13.2-15.2); White Blood Count 11.1 K/mm3 (4.5-11.0)
[2016-11-29 06:02] LABS: Platelet Count 353 K/mm3 (140-440)
[2016-11-29 06:07] LABS: Blood Urea Nitrogen 6 mg/dL (9-20); Calcium 9.4 mg/dL (8.4-10.2); Carbon Dioxide 25 mmol/L (22-30); Glucose 121 mg/dL (75-100)
[2016-11-29 06:08] LABS: Chloride 105.9 mmol/L (98-107); Sodium 144 mmol/L (137-145)
[2016-11-29 06:12] LABS: Anion Gap 18 mmol/L; Potassium 4.4 mmol/L (3.6-5.0)
[2016-11-29] MEDS: THERAGRAN-M Tab PO SCH (10:00)
[2016-11-29] MEDS: FOLVITE 1 MG in NACL 0.9% 50 ML IV SCH (14:35)
[2016-11-29] MEDS: VITAMIN B-1 100 MG in NACL 0.9% 50 ML IV SCH (14:36)
[2016-11-29] MEDS: PROTONIX 80 MG in NACL 0.9% 100 ML IV SCH ×2 (14:37)
[2016-11-29] MEDS: NACL 0.9% 1000 ML 1,000 ML IV SCH (14:37)
--- NOTE | 2016-11-29 15:17 | Gastroenterology Progress Note ---
Assessment and Plan 1. alcohol withdrawal/AMS - per mom pt does not drink alcohol, but unsure how reliable/aware she is regarding her son's presentation 2. Coffee ground emesis - hct has remained stable w/o signs of active bleeding. Mother has given consent for procedure. Will plan for EGD tomorrow. Subjective Date of service: 11/29/16 Principal diagnosis: AMS, alcohol withdrawal, coffee ground emesis Interval history: pt seen and examined. His mother is at bedside today. He remains sedated and in restraints. She states that her son does not drink and quit 15 years ago. She also states he has a learning disability, and lives with her at home. She is unaware of any bleeding episodes prior to his arrival. Objective - Exam Narrative Exam: Gen: sedated/in restraints CV: RRR Lungs: CTAB, non labored Abd: soft, nd, +bs - Constitutional Vitals: Temp Pulse Resp BP Pulse Ox 97.5 F L 94 H 18 120/65 99 11/29/16 07:52 11/29/16 13:00 11/29/16 07:52 11/29/16 07:52 11/29/16 07:52 - Labs CBC & Chem 7: 11/29/16 04:36 11/29/16 04:36 Labs: Laboratory Results - last 24 hr 11/29/16 11/29/16 11/29/16 04:36 04:36 04:36 WBC 11.1 H RBC 3.09 L Hgb 9.3 L Hct 26.8 L MCV 86 MCH 30 MCHC 35 H RDW 14.1 Plt Count 353 Lymph % (Auto) 21.7 [place] % (Auto) 5.5 Eos % (Auto) 4.6 H Baso % (Auto) 1.1 Lymph # 2.4 [place] # 0.6 Eos # 0.5 H Baso # 0.1 Seg Neutrophils % 67.1 Seg Neutrophils # 7.4 Sodium 144 D Potassium 4.4 D Chloride 105.9 Carbon Dioxide 25 Anion Gap 18 BUN 6 L Creatinine 0.5 L Estimated GFR > 60 BUN/Creatinine Ratio 12.00 Glucose 121 H Calcium 9.4 Ammonia 33.0
--- NOTE | 2016-11-29 17:30 | Progress Note ---
Assessment and Plan Assessment and plan: 40-year-old man with a past medical history of PUD, learning disability, mental retardation who lives with his mom who presented with coffee-ground emesis. his mom states that he quit drinking 15 years ago. and that he lives with her and does not drink 1. Alcohol abuse was suspected but ruled out based on report from his mother. 2. Metabolic encephalopathy Due to acute illness rx underlying cause, constant reorientation 3. Coffee-ground emesis/acute GI Bleed GI consult appreciated, most likely due to recurrent PUD. Continue conservative management with PPI, and patient if rebleeds will need EGD. 4. Acute blood loss anemia , Hg has dropped from 14 to 9, Continue to monitor hemoglobin, transfuse to keep hemoglobin above 8 5. 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 Hypernatremia Has resolved with IV fluid hydration. 7. Hypokalemia Repleted IV NOK is mother, Aislinn Romeo; [phone]; she makes all his decisions as he suffers from mental retardation. History Interval history: Patient continues to be confused, has been agitated, and confused Hospitalist Physical - Physical exam Narrative exam: General: appears well HEENT: MMM, EOMI cardiac: S1-S2 heard lungs: clear to auscultation, abdomen: soft, nontender, nondistended bowel sounds positive extremities: no edema clubbing or cyanosis Skin: no rash or lesion Neuro: , obtunded - Constitutional Vitals: Temp Pulse Resp BP Pulse Ox 97.5 F L 94 H 18 120/65 99 11/29/16 07:52 11/29/16 13:00 11/29/16 07:52 11/29/16 07:52 11/29/16 07:52 Results - Labs CBC & Chem 7: 11/29/16 04:36 11/29/16 04:36 Labs: Laboratory Last Values WBC 11.1 K/mm3 (4.5-11.0) H 11/29/16 04:36 RBC 3.09 M/mm3 (3.65-5.03) L 11/29/16 04:36 Hgb 9.3 gm/dl (11.8-15.2) L 11/29/16 04:36 Hct 26.8 % (35.5-45.6) L 11/29/16 04:36 MCV 86 fl (84-94) 11/29/16 04:36 MCH 30 pg (28-32) 11/29/16 04:36 MCHC 35 % (32-34) H 11/29/16 04:36 RDW 14.1 % (13.2-15.2) 11/29/16 04:36 Plt Count 353 K/mm3 (140-440) 11/29/16 04:36 Lymph % (Auto) 21.7 % (13.4-35.0) 11/29/16 04:36 [place] % (Auto) 5.5 % (0.0-7.3) 11/29/16 04:36 Eos % (Auto) 4.6 % (0.0-4.3) H 11/29/16 04:36 Baso % (Auto) 1.1 % (0.0-1.8) 11/29/16 04:36 Lymph # 2.4 K/mm3 (1.2-5.4) 11/29/16 04:36 [place] # 0.6 K/mm3 (0.0-0.8) 11/29/16 04:36 Eos # 0.5 K/mm3 (0.0-0.4) H 11/29/16 04:36 Baso # 0.1 K/mm3 (0.0-0.1) 11/29/16 04:36 Add Manual Diff Complete 11/26/16 07:20 Total Counted 100 11/26/16 07:20 Seg Neutrophils % 67.1 % (40.0-70.0) 11/29/16 04:36 Seg Neuts % (Manual) 78.0 % (40.0-70.0) H 11/26/16 07:20 Band Neutrophils % 0 % 11/26/16 07:20 Lymphocytes % (Manual) 16.0 % (13.4-35.0) 11/26/16 07:20 Reactive Lymphs % (Man) 0 % 11/26/16 07:20 Monocytes % (Manual) 6.0 % (0.0-7.3) 11/26/16 07:20 Eosinophils % (Manual) 0 % (0.0-4.3) 11/26/16 07:20 Basophils % (Manual) 0 % (0.0-1.8) 11/25/16 14:54 Metamyelocytes % 0 % 11/26/16 07:20 Myelocytes % 0 % 11/26/16 07:20 Promyelocytes % 0 % 11/26/16 07:20 Blast Cells % 0 % 11/26/16 07:20 Nucleated RBC % Not Reportable 11/26/16 07:20 Seg Neutrophils # 7.4 K/mm3 (1.8-7.7) 11/29/16 04:36 Seg Neutrophils # Man 18.2 K/mm3 (1.8-7.7) H 11/26/16 07:20 Band Neutrophils # 0.0 K/mm3 11/26/16 07:20 Lymphocytes # (Manual) 3.7 K/mm3 (1.2-5.4) 11/26/16 07:20 Abs React Lymphs (Man) 0.0 K/mm3 11/26/16 07:20 Monocytes # (Manual) 1.4 K/mm3 (0.0-0.8) H 11/26/16 07:20 Eosinophils # (Manual) 0.0 K/mm3 (0.0-0.4) 11/26/16 07:20 Basophils # (Manual) 0.0 K/mm3 (0.0-0.1) 11/26/16 07:20 Metamyelocytes # 0.0 K/mm3 11/26/16 07:20 Myelocytes # 0.0 K/mm3 11/26/16 07:20 Promyelocytes # 0.0 K/mm3 11/26/16 07:20 Blast Cells # 0.0 K/mm3 11/26/16 07:20 WBC Morphology Not Reportable 11/26/16 07:20 Hypersegmented Neuts Not Reportable 11/26/16 07:20 Hyposegmented Neuts Not Reportable 11/26/16 07:20 Hypogranular Neuts Not Reportable 11/26/16 07:20 Smudge Cells Not Reportable 11/26/16 07:20 Toxic Granulation Not Reportable 11/26/16 07:20 Toxic Vacuolation Not Reportable 11/26/16 07:20 Dohle Bodies Not Reportable 11/26/16 07:20 Pelger-Huet Anomaly Not Reportable 11/26/16 07:20 Khagn Rods Not Reportable 11/26/16 07:20 Platelet Estimate Cons 11/26/16 07:20 Clumped Platelets Not Reportable 11/26/16 07:20 Plt Clumps, EDTA Not Reportable 11/26/16 07:20 Large Platelets Not Reportable 11/26/16 07:20 Giant Platelets Not Reportable 11/26/16 07:20 Platelet Satelliting Not Reportable 11/26/16 07:20 Plt Morphology Comment Not Reportable 11/26/16 07:20 RBC Morphology Not Reportable 11/26/16 07:20 Dimorphic RBCs Not Reportable 11/26/16 07:20 Polychromasia Not Reportable 11/26/16 07:20 Hypochromasia Not Reportable 11/26/16 07:20 Poikilocytosis Not Reportable 11/26/16 07:20 Anisocytosis 1+ 11/26/16 07:20 Microcytosis Not Reportable 11/26/16 07:20 Macrocytosis Not Reportable 11/26/16 07:20 Spherocytes Not Reportable 11/26/16 07:20 Pappenheimer Bodies Not Reportable 11/26/16 07:20 Sickle Cells Not Reportable 11/26/16 07:20 Target Cells Not Reportable 11/26/16 07:20 Tear Drop Cells Not Reportable 11/26/16 07:20 Ovalocytes Not Reportable 11/26/16 07:20 Helmet Cells Not Reportable 11/26/16 07:20 Barr-Hydro Bodies Not Reportable 11/26/16 07:20 [place] Rings Not Reportable 11/26/16 07:20 [place] Cells Not Reportable 11/26/16 07:20 Bite Cells Not Reportable 11/26/16 07:20 Crenated Cell Not Reportable 11/26/16 07:20 Elliptocytes Not Reportable 11/26/16 07:20 Acanthocytes (Spur) Not Reportable 11/26/16 07:20 Rouleaux Not Reportable 11/26/16 07:20 Hemoglobin C Crystals Not Reportable 11/26/16 07:20 Schistocytes Not Reportable 11/26/16 07:20 Malaria parasites Not Reportable 11/26/16 07:20 Jean Bodies Not Reportable 11/26/16 07:20 Hem Pathologist Commnt No 11/26/16 07:20 PT 13.8 Sec. (12.2-14.9) 11/25/16 14:54 INR 1.07 (0.87-1.13) 11/25/16 14:54 APTT 25.2 Sec. (24.2-36.6) 11/25/16 14:54 Sodium 144 mmol/L (137-145) D 11/29/16 04:36 Potassium 4.4 mmol/L (3.6-5.0) D 11/29/16 04:36 Chloride 105.9 mmol/L (98-107) 11/29/16 04:36 Carbon Dioxide 25 mmol/L (22-30) 11/29/16 04:36 Anion Gap 18 mmol/L 11/29/16 04:36 BUN 6 mg/dL (9-20) L 11/29/16 04:36 Creatinine 0.5 mg/dL (0.8-1.5) L 11/29/16 04:36 Estimated GFR > 60 ml/min 11/29/16 04:36 BUN/Creatinine Ratio 12.00 % 11/29/16 04:36 Glucose 121 mg/dL (75-100) H 11/29/16 04:36 Calcium 9.4 mg/dL (8.4-10.2) 11/29/16 04:36 Phosphorus 2.30 mg/dL (2.5-4.5) L 11/27/16 06:47 Magnesium 2.00 mg/dL (1.7-2.3) 11/27/16 06:47 Total Bilirubin 0.50 mg/dL (0.1-1.2) 11/25/16 14:54 AST 9 units/L (5-40) 11/25/16 14:54 ALT 16 units/L (7-56) 11/25/16 14:54 Alkaline Phosphatase 71 units/L (35-129) 11/25/16 14:54 Ammonia 33.0 umol/L (25-60) 11/29/16 04:36 Total Protein 6.5 g/dL (6.3-8.2) 11/25/16 14:54 Albumin 4.1 g/dL (3.9-5) 11/25/16 14:54 Albumin/Globulin Ratio 1.7 % 11/25/16 14:54 Lipase 12 units/L (13-60) L 11/25/16 14:54 Blood Type O POSITIVE 11/25/16 14:57 IKE Antibody Screen Negative 11/25/16 14:57
[2016-11-30] MEDS: PROTONIX 80 MG in NACL 0.9% 100 ML IV SCH ×2 (07:52→07:55)
[2016-11-30 07:57] LABS: Anion Gap 16 mmol/L; Blood Urea Nitrogen 11 mg/dL (9-20); Calcium 9.3 mg/dL (8.4-10.2); Carbon Dioxide 24 mmol/L (22-30); Chloride 102.7 mmol/L (98-107); Glucose 123 mg/dL (75-100); Potassium 3.9 mmol/L (3.6-5.0); Sodium 139 mmol/L (137-145)
[2016-11-30] MEDS: THERAGRAN-M Tab PO SCH (09:18)
[2016-11-30] MEDS ORDERED: ATIVAN ONE (10:03)
[2016-11-30 10:29] LABS: Eosinophils % (Auto) 3.5 % (0.0-4.3); Hematocrit 27.7 % (35.5-45.6); Hemoglobin 9.3 gm/dl (11.8-15.2); Mean Corpuscular HGB Conc 34 % (32-34); Mean Corpuscular Hemoglobin 29 pg (28-32); Mean Corpuscular Volume 86 fl (84-94); Platelet Count 414 K/mm3 (140-440); Red Blood Count 3.21 M/mm3 (3.65-5.03); Red Cell Distribution Width 14.4 % (13.2-15.2); White Blood Count 13.5 K/mm3 (4.5-11.0)
[2016-11-30] MEDS ORDERED: ATIVAN IV ONE ×2 (12:15→14:27)
[2016-11-30] MEDS: NACL 0.9% 1000 ML 1,000 ML IV SCH (12:52)
[2016-11-30] MEDS ORDERED: DIPRIVAN 10 MG/ML IV ONE (12:56)
[2016-11-30] MEDS ORDERED: NACL 0.9% 1000 ML 1,000 ML IV SCH (13:00)
[2016-11-30] MEDS ORDERED: WATER FOR IRRIG STERILE IR ONE (13:10)
--- NOTE | 2016-11-30 13:29 | Post Operative Note ---
Pre-op diagnosis: GI bleed Post-op diagnosis: other (severe ulcerative esophagitis, large pyloric channel ulcer with heme spots, adjacent clean based ulcer in pyloric channel) Findings: EGD: esophagus: severe (LA grade D) erosive esophagitis throughout the mid/distal esophagus. biopsies were obtained. moderate sized hiatal hernia stomach: large (~3x3cm) cratered ulcer in pyloric channel with heaped up margins. Multiple heme spots but no high risk bleeding stigmata/lesions. There was another pyloric channel ulcer that was clean based and smaller in size. Biopsies obtained. Duodenum: erythematous mucosa in the bulb. Procedure: EGD with biopsies Anesthesia: MAC Surgeon: JEWELS MORILLO Estimated blood loss: minimal Pathology: list (Jar A - esophageal bx's, Jar B - ulcer edge biopsies) Specimen disposition: to lab Condition: stable Disposition: floor
[2016-11-30] MEDS ORDERED: ATIVAN IV PRN (16:25)
--- NOTE | 2016-11-30 16:28 | Progress Note ---
Assessment and Plan Assessment and plan: 40-year-old man with a past medical history of PUD, learning disability, mental retardation who lives with his mom who presented with coffee-ground emesis. his mom states that he quit drinking 15 years ago. and that he lives with her and does not drink EGD 11/30/69 Erosive esophagitis in the mid and distal esophagus Large pyloric ulcer Erythematous mucosa of the duodenal bulb 1. Alcohol abuse was suspected but ruled out based on report from his mother. 2. Metabolic encephalopathy Due to acute illness rx underlying cause, constant reorientation 3. Coffee-ground emesis/acute GI Bleed Status post EGD, has peptic ulcer disease and esophagitis, continue PPI twice a day. Mother to be counseled on the importance of compliance with his medication 4. Acute blood loss anemia , Hg has dropped from 14 to 9, hemoglobin stable, Continue to monitor hemoglobin , transfuse to keep hemoglobin above 8 5. 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 Hypernatremia Has resolved with IV fluid hydration. 7. Hypokalemia Repleted IV and resolved MAIRA is mother, Aislinn Romeo; [phone]; she makes all his decisions as he suffers from mental retardation. Tentative discharge tomorrow with his mother. History Interval history: The patient is in good spirits, he has no complaints. Nurses noted that he did not have any episodes of coffee-ground emesis, no bloody bowel movements. Hospitalist Physical - Physical exam Narrative exam: General: appears well HEENT: MMM, EOMI poor dentition cardiac: S1-S2 heard lungs: clear to auscultation, abdomen: soft, nontender, nondistended bowel sounds positive extremities: no edema clubbing or cyanosis Skin: no rash or lesion Neuro: , Awake oriented to person only, has mental retardation, moves all extremities, obeys commands. Poor insight - Constitutional Vitals: Temp Pulse Resp BP Pulse Ox 97.7 F 107 H 20 106/61 99 11/30/16 13:29 11/30/16 13:44 11/30/16 13:44 11/30/16 13:44 11/30/16 13:44 Results - Labs CBC & Chem 7: 11/30/16 07:10 11/30/16 04:00 Labs: Laboratory Last Values WBC 13.5 K/mm3 (4.5-11.0) H 11/30/16 07:10 RBC 3.21 M/mm3 (3.65-5.03) L 11/30/16 07:10 Hgb 9.3 gm/dl (11.8-15.2) L 11/30/16 07:10 Hct 27.7 % (35.5-45.6) L 11/30/16 07:10 MCV 86 fl (84-94) 11/30/16 07:10 MCH 29 pg (28-32) 11/30/16 07:10 MCHC 34 % (32-34) 11/30/16 07:10 RDW 14.4 % (13.2-15.2) 11/30/16 07:10 Plt Count 414 K/mm3 (140-440) 11/30/16 07:10 Lymph % (Auto) 14.1 % (13.4-35.0) 11/30/16 07:10 [place] % (Auto) 5.9 % (0.0-7.3) 11/30/16 07:10 Eos % (Auto) 3.5 % (0.0-4.3) 11/30/16 07:10 Baso % (Auto) 1.0 % (0.0-1.8) 11/30/16 07:10 Lymph # 1.9 K/mm3 (1.2-5.4) 11/30/16 07:10 [place] # 0.8 K/mm3 (0.0-0.8) 11/30/16 07:10 Eos # 0.5 K/mm3 (0.0-0.4) H 11/30/16 07:10 Baso # 0.1 K/mm3 (0.0-0.1) 11/30/16 07:10 Add Manual Diff Complete 11/26/16 07:20 Total Counted 100 11/26/16 07:20 Seg Neutrophils % 75.5 % (40.0-70.0) H 11/30/16 07:10 Seg Neuts % (Manual) 78.0 % (40.0-70.0) H 11/26/16 07:20 Band Neutrophils % 0 % 11/26/16 07:20 Lymphocytes % (Manual) 16.0 % (13.4-35.0) 11/26/16 07:20 Reactive Lymphs % (Man) 0 % 11/26/16 07:20 Monocytes % (Manual) 6.0 % (0.0-7.3) 11/26/16 07:20 Eosinophils % (Manual) 0 % (0.0-4.3) 11/26/16 07:20 Basophils % (Manual) 0 % (0.0-1.8) 11/25/16 14:54 Metamyelocytes % 0 % 11/26/16 07:20 Myelocytes % 0 % 11/26/16 07:20 Promyelocytes % 0 % 11/26/16 07:20 Blast Cells % 0 % 11/26/16 07:20 Nucleated RBC % Not Reportable 11/26/16 07:20 Seg Neutrophils # 10.2 K/mm3 (1.8-7.7) H 11/30/16 07:10 Seg Neutrophils # Man 18.2 K/mm3 (1.8-7.7) H 11/26/16 07:20 Band Neutrophils # 0.0 K/mm3 11/26/16 07:20 Lymphocytes # (Manual) 3.7 K/mm3 (1.2-5.4) 11/26/16 07:20 Abs React Lymphs (Man) 0.0 K/mm3 11/26/16 07:20 Monocytes # (Manual) 1.4 K/mm3 (0.0-0.8) H 11/26/16 07:20 Eosinophils # (Manual) 0.0 K/mm3 (0.0-0.4) 11/26/16 07:20 Basophils # (Manual) 0.0 K/mm3 (0.0-0.1) 11/26/16 07:20 Metamyelocytes # 0.0 K/mm3 11/26/16 07:20 Myelocytes # 0.0 K/mm3 11/26/16 07:20 Promyelocytes # 0.0 K/mm3 11/26/16 07:20 Blast Cells # 0.0 K/mm3 11/26/16 07:20 WBC Morphology Not Reportable 11/26/16 07:20 Hypersegmented Neuts Not Reportable 11/26/16 07:20 Hyposegmented Neuts Not Reportable 11/26/16 07:20 Hypogranular Neuts Not Reportable 11/26/16 07:20 Smudge Cells Not Reportable 11/26/16 07:20 Toxic Granulation Not Reportable 11/26/16 07:20 Toxic Vacuolation Not Reportable 11/26/16 07:20 Dohle Bodies Not Reportable 11/26/16 07:20 Pelger-Huet Anomaly Not Reportable 11/26/16 07:20 [place] Rods Not Reportable 11/26/16 07:20 Platelet Estimate Cons 11/26/16 07:20 Clumped Platelets Not Reportable 11/26/16 07:20 Plt Clumps, EDTA Not Reportable 11/26/16 07:20 Large Platelets Not Reportable 11/26/16 07:20 Giant Platelets Not Reportable 11/26/16 07:20 Platelet Satelliting Not Reportable 11/26/16 07:20 Plt Morphology Comment Not Reportable 11/26/16 07:20 RBC Morphology Not Reportable 11/26/16 07:20 Dimorphic RBCs Not Reportable 11/26/16 07:20 Polychromasia Not Reportable 11/26/16 07:20 Hypochromasia Not Reportable 11/26/16 07:20 Poikilocytosis Not Reportable 11/26/16 07:20 Anisocytosis 1+ 11/26/16 07:20 Microcytosis Not Reportable 11/26/16 07:20 Macrocytosis Not Reportable 11/26/16 07:20 Spherocytes Not Reportable 11/26/16 07:20 Pappenheimer Bodies Not Reportable 11/26/16 07:20 Sickle Cells Not Reportable 11/26/16 07:20 Target Cells Not Reportable 11/26/16 07:20 Tear Drop Cells Not Reportable 11/26/16 07:20 Ovalocytes Not Reportable 11/26/16 07:20 Helmet Cells Not Reportable 11/26/16 07:20 Barr-[place] Bodies Not Reportable 11/26/16 07:20 [place] Rings Not Reportable 11/26/16 07:20 [place] Cells Not Reportable 11/26/16 07:20 Bite Cells Not Reportable 11/26/16 07:20 Crenated Cell Not Reportable 11/26/16 07:20 Elliptocytes Not Reportable 11/26/16 07:20 Acanthocytes (Spur) Not Reportable 11/26/16 07:20 Rouleaux Not Reportable 11/26/16 07:20 Hemoglobin C Crystals Not Reportable 11/26/16 07:20 Schistocytes Not Reportable 11/26/16 07:20 Malaria parasites Not Reportable 11/26/16 07:20 Jean Bodies Not Reportable 11/26/16 07:20 Hem Pathologist Commnt No 11/26/16 07:20 PT 13.8 Sec. (12.2-14.9) 11/25/16 14:54 INR 1.07 (0.87-1.13) 11/25/16 14:54 APTT 25.2 Sec. (24.2-36.6) 11/25/16 14:54 Sodium 139 mmol/L (137-145) 11/30/16 04:00 Potassium 3.9 mmol/L (3.6-5.0) 11/30/16 04:00 Chloride 102.7 mmol/L (98-107) 11/30/16 04:00 Carbon Dioxide 24 mmol/L (22-30) 11/30/16 04:00 Anion Gap 16 mmol/L 11/30/16 04:00 BUN 11 mg/dL (9-20) 11/30/16 04:00 Creatinine 0.4 mg/dL (0.8-1.5) L 11/30/16 04:00 Estimated GFR > 60 ml/min 11/30/16 04:00 BUN/Creatinine Ratio 27.50 % 11/30/16 04:00 Glucose 123 mg/dL (75-100) H 11/30/16 04:00 Calcium 9.3 mg/dL (8.4-10.2) 11/30/16 04:00 Phosphorus 2.30 mg/dL (2.5-4.5) L 11/27/16 06:47 Magnesium 2.00 mg/dL (1.7-2.3) 11/27/16 06:47 Total Bilirubin 0.50 mg/dL (0.1-1.2) 11/25/16 14:54 AST 9 units/L (5-40) 11/25/16 14:54 ALT 16 units/L (7-56) 11/25/16 14:54 Alkaline Phosphatase 71 units/L (35-129) 11/25/16 14:54 Ammonia 33.0 umol/L (25-60) 11/29/16 04:36 Total Protein 6.5 g/dL (6.3-8.2) 11/25/16 14:54 Albumin 4.1 g/dL (3.9-5) 11/25/16 14:54 Albumin/Globulin Ratio 1.7 % 11/25/16 14:54 Lipase 12 units/L (13-60) L 11/25/16 14:54 Blood Type O POSITIVE 11/25/16 14:57 IKE Antibody Screen Negative 11/25/16 14:57
--- NOTE | 2016-11-30 18:26 | Operative Report ---
PROCEDURE: EGD. PREOPERATIVE DIAGNOSES: Anemia, gastrointestinal bleed. POSTOPERATIVE DIAGNOSES: Severe ulcerative esophagitis, large pyloric channel ulcer, adjacent small clean-based ulcer. ANESTHESIA: Monitored anesthesia care. COMPLICATIONS: No immediate complications. ESTIMATED BLOOD LOSS: Minimal. DESCRIPTION OF PROCEDURE: After consent was obtained from the patient's mother (the patient is unable to consent for himself due to mental status, the patient was placed in the left lateral decubitus position. The upper Fujinon endoscope was advanced with direct vision through the mouth and advanced to the second portion of duodenum without difficulty. The patient tolerated the procedure well. The views of the mucosa were good. FINDINGS: 1. There was severe erosive esophagitis throughout the mid and distal portion of the esophagus. Biopsies were obtained. There was a moderate size hiatal hernia. 2. There was approximately 3 x 3 cm pyloric channel ulcer with multiple heme spots. No high risk bleeding stigmata seen. The ulcer appeared cratered with heaped up margins. Biopsies were obtained from the ulcer edge. There was another clean-based ulcer (~5 mm) in the pyloric channel adjacent to the larger ulcer. 3. Moderate erythematous mucosa in the duodenal bulb. Otherwise, the duodenum appeared normal. IMPRESSION: 1. Severe erosive esophagitis. Biopsies were obtained. 2. Pyloric channel ulcers as detailed above. No high risk bleeding stigmata seen. Biopsies were obtained from the ulcer edge. 3. Erythematous mucosa in the duodenal bulb. RECOMMENDATIONS: 1. Switch to PPI b.i.d. dosing. 2. Follow up pathology. 3. Avoid NSAIDs. 4. Will likely need repeat EGD in 6-8 weeks to assess for ulcer healing. JOB# [id number] JURGEN/MAK LAGOS
[2016-11-30] MEDS: PROTONIX IV SCH (23:15)
[2016-12-01 06:46] LABS: Anion Gap 17 mmol/L; Blood Urea Nitrogen 7 mg/dL (9-20); Calcium 9.2 mg/dL (8.4-10.2); Carbon Dioxide 26 mmol/L (22-30); Chloride 105.3 mmol/L (98-107); Glucose 112 mg/dL (75-100); Sodium 144 mmol/L (137-145)
[2016-12-01 06:49] LABS: Basophils % (Auto) 1.3 % (0.0-1.8); Eosinophils % (Auto) 3.4 % (0.0-4.3); Hematocrit 26.6 % (35.5-45.6); Hemoglobin 9.2 gm/dl (11.8-15.2); Mean Corpuscular HGB Conc 35 % (32-34); Mean Corpuscular Hemoglobin 30 pg (28-32); Mean Corpuscular Volume 85 fl (84-94); Platelet Count 460 K/mm3 (140-440); Red Blood Count 3.13 M/mm3 (3.65-5.03); White Blood Count 10.8 K/mm3 (4.5-11.0)
--- NOTE | 2016-12-01 09:02 | Discharge Summary ---
Providers - Providers Date of Admission: 11/25/16 15:50 Attending physician: WILIAM SALEH MD 11/26/16 12:06 Consult to Dietitian/Nutrition [CONS] Routine Physician Instructions: Reason For Exam: Reason for Consult: Malnutrition Primary care physician: DICTAPHONE OPERATOR Hospitalization Condition: Stable Procedures: EGD 11/30/16 erosive esophagitis in the mid and distal esophagus Large pyloric ulcer Erythematous mucosa of the duodenal bulb Hospital course: 40-year-old man with a past medical history of PUD, learning disability, mental retardation who lives with his mom who presented with coffee-ground emesis. The patient initially told hospital staff that he had a history of alcohol abuse , he was therefore put on ciwa protocol and rx for withdrawal. His mother later came and stated that he has mental retardation and learning disablity and is not a reliable historian, as per her, he has a hx of PUD and is not currently on any meds for it. He has not had a drink in 15 years, he lives with her and she is his primary supervisor dyer. He was therefore taken off C were protocol, he was treated with IV Protonix, he went on to have an EGD that showed erosive esophagitis and ulcer in the pylorus of his stomach. He was put on Protonix, his mother was counseled that he will need lifelong PPI. He is to follow-up in GI clinic for biopsy results. He also received IV fluids he was put on vitamins that he was encouraged on better diets. With regards to hypokalemia that was repleted. His blood counts were monitored and were stable throughout his admission. Discharge diagnoses Metabolic encephalopathy Acute upper GI bleed Peptic ulcer disease Acute blood loss anemia Mild malnutrition Hypokalemia Hypernatremia MAIRA is mother, Aislinn Romeo; [phone]; she makes all his decisions as he suffers from mental retardation. Disposition: DC/TX HOME UNDER HOME HEALTH Time spent for discharge: 35 minutes Core Measure Documentation - Palliative Care Palliative Care/ Comfort Measures: Not Applicable - Core Measures Any of the following diagnoses?: none Exam - Physical Exam Narrative exam: General: appears well HEENT: MMM, EOMI poor dentition cardiac: S1-S2 heard lungs: clear to auscultation, abdomen: soft, nontender, nondistended bowel sounds positive extremities: no edema clubbing or cyanosis Skin: no rash or lesion Neuro: , Awake oriented to person only, has mental retardation, moves all extremities, obeys commands. Poor insight - Constitutional Vitals: Temp Pulse Resp BP Pulse Ox 98.1 F 70 18 112/61 98 12/01/16 04:00 12/01/16 04:00 12/01/16 04:00 12/01/16 04:00 12/01/16 04:00 Plan Follow up with: PRIMARY MD LUCAS [Primary Care Provider] - 3-5 Days JEWELS MORILLO MD [Staff Physician] - 7 Days [facility] [Outside] - 7 Days Forms: Accompanied Note Prescriptions: RX: Multivitamin Tab W-MINERAL [Multiple Vitamin/Mineral (Theragran M)] 1 each PO QDAY #30 tablet Pantoprazole [Protonix] 40 mg PO QDAY #30 tablet
[2016-12-01 09:06] VITALS: BP 114/70
[2016-12-01] MEDS: PROTONIX IV SCH (09:38)
[2016-12-01] MEDS: THERAGRAN-M Tab PO SCH (09:39)
== END 2016-12-01 15:15 | disposition home health service (06) | DRG 377 ==
LOC: ED 14:04 → EDBD 15:50 → 4A 15:50
PROVIDERS: ADMIT Internal Medicine; ATTEND Internal Medicine
PROC: 0DB28ZX Excision of Middle Esophagus, Via Natural or Artificial Opening Endoscopic, Diagnostic (ICD-10-PCS; principal; 2016-11-30)
PROC: 0DB58ZX Excision of Esophagus, Via Natural or Artificial Opening Endoscopic, Diagnostic (ICD-10-PCS; 2016-11-30)
DX: K92.2 Gastrointestinal hemorrhage, unspecified (principal); G93.41 Metabolic encephalopathy; F10.239 Alcohol dependence with withdrawal, unspecified; D62 Acute posthemorrhagic anemia; E44.1 Mild protein-calorie malnutrition; E87.0 Hyperosmolality and hypernatremia; K22.10 Ulcer of esophagus without bleeding; I10 Essential (primary) hypertension; F41.1 Generalized anxiety disorder; K27.9 Peptic ulcer, site unspecified, unspecified as acute or chronic, without hemorrhage or perforation; E87.6 Hypokalemia; K25.9 Gastric ulcer, unspecified as acute or chronic, without hemorrhage or perforation; F17.210 Nicotine dependence, cigarettes, uncomplicated; F41.9 Anxiety disorder, unspecified; Z68.27 Body mass index [BMI] 27.0-27.9, adult
CPT/HCPCS: 36415; 71010; 80048; 80053; 82140; 83690; 83735; 84100; 85007; 85025; 85610; 85730; 86850; 86900; 86901; 88305; 88312; 88342; 93005; 93010; 96374; 96375; C9113; J1630; J2060; J2405; J2704; J3010; J3411; J3480; J7030

== ENCOUNTER 2016-12-10 14:12 | Inpatient (IN) | payer OTHER ==
[2016-12-10 14:53] LABS: Hematocrit 28.2 % (35.5-45.6); Hemoglobin 9.2 gm/dl (11.8-15.2); Mean Corpuscular HGB Conc 33 % (32-34); Mean Corpuscular Hemoglobin 27 pg (28-32); Mean Corpuscular Volume 84 fl (84-94); Platelet Count 714 K/mm3 (140-440); Red Blood Count 3.35 M/mm3 (3.65-5.03); Red Cell Distribution Width 14.3 % (13.2-15.2)
[2016-12-10 15:18] LABS: Alanine Aminotransferase 16 units/L (7-56); Albumin 3.7 g/dL (3.9-5); Albumin/Globulin Ratio 1.2 %; Alkaline Phosphatase 66 units/L (35-129); Anion Gap 19 mmol/L; Blood Urea Nitrogen 8 mg/dL (9-20); Calcium 9.7 mg/dL (8.4-10.2); Carbon Dioxide 26 mmol/L (22-30); Chloride 98.2 mmol/L (98-107); Glucose 141 mg/dL (75-100); Lipase 19 units/L (13-60); Sodium 139 mmol/L (137-145); Total Protein 6.9 g/dL (6.3-8.2)
[2016-12-10] MEDS ORDERED: PROTONIX IV ONE (16:36)
[2016-12-10] MEDS ORDERED: ZOFRAN IV ONE (16:36)
[2016-12-10] MEDS ORDERED: NACL 0.9% 1000 ML 1,000 ML IV ONE (16:36)
[2016-12-10] MEDS ORDERED: MORPHINE IV ONE (16:36)
--- NOTE | 2016-12-10 16:46 | Emergency Department Report ---
ED Abdominal Pain HPI - General Chief Complaint: Abdominal Pain Stated Complaint: ABD PAIN Time Seen by Provider: 12/10/16 16:27 Source: patient, old records reviewed Mode of arrival: Wheelchair Limitations: No Limitations - History of Present Illness Initial Comments: 41-year-old male with a past medical history of mental retardation, hypertension , stomach ulcers, hiatal hernia, ulcerative esophagitis presents to the hospital complains of abdominal pain and vomiting as started today. The patient is recently admitted here November 25 to for similar symptoms. He had an endoscopy at the time that showed erosive esophagitis and ulcer in the course of the stomach. All PPI and counseled about his lifetime PPI use. Patient also was treated for hypokalemia and coffee-ground emesis. Patient states he lost the prescription and has not taking Protonix since discharge. He complains of left-sided sharp/burning intermittent pain abdominal pain that is moderate and without aggravating or alleviating factors. Last bowel movement was yesterday reported to be brown and no reports of diarrhea or fever. Patient has mental retardation and therefore I'm awaiting his mother as well as the hospital to clarify history of present illness - Related Data Home Medications Medication Instructions Recorded Confirmed Last Taken No Known Home Medications [No 12/10/16 12/10/16 Unknown Reported Home Medications] Allergies Allergy/AdvReac Type Severity Reaction Status Date / Time No Known Allergies Allergy Verified 12/10/16 14:27 ED Review of Systems ROS: Stated complaint: ABD PAIN Other details as noted in HPI Comment: All other systems reviewed and negative Other: Constitutional: No fevers chills Eyes: No eye pain visual changes ENT: No ear pain or throat pain Neck: Denies pain Respiratory: Denies cough shortness of breath Cardiovascular: Denies chest pain GI: As per HPI : Denies dysuria Musculoskeletal: Denies back pain Skin: Denies rash, lesions, erythema Neurologic: Denies headache, numbness, weakness Psychiatric: Denies suicidal ideation, hallucinations ED Past Medical Hx - Past Medical History Hx Hypertension: Yes Hx Congestive Heart Failure: No Hx Diabetes: No Hx Asthma: No Hx COPD: No Hx Dementia: No Additional medical history: stomach ulcers. HIATAL HERNIA. ULCERATIVE ESOPHAGITIS - Surgical History Past Surgical History?: No - Social History Smoking Status: Current Every Day Smoker Substance Use Type: None - Medications Home Medications: Home Medications Medication Instructions Recorded Confirmed Last Taken Type No Known Home Medications [No 12/10/16 12/10/16 Unknown History Reported Home Medications] ED Physical Exam - General Limitations: No Limitations - Other Other exam information: General: No limitations, patient is alert in no acute distress Head exam: Atraumatic, normocephalic Eyes exam: Normal appearance ENT: Moist mucous membrane Neck exam: Normal inspection Respiratory exam: Clear to auscultation bilateral, no wheezes, rales, crackles Cardiovascular: Normal rate and rhythm, normal heart sounds Abdomen: Soft, nondistended, and minimal left abdominal tenderness, with normal bowel sounds, no rebound, or guarding. Coffee-ground emesis at the base Extremity: Full range of motion normal inspection no deformity Back: Normal Inspection, full range of motion, no tenderness Neurologic: Alert, oriented x3, cranial nerves intact, no motor or sensory deficit Psychiatric: normal affect, normal mood Skin: Warm, dry, intact ED Course Vital Signs 12/10/16 12/10/16 12/10/16 14:22 16:34 16:43 Temperature 98.9 F Pulse Rate 93 H Respiratory 17 18 Rate Blood Pressure 122/77 120/77 O2 Sat by Pulse 99 Oximetry 12/10/16 12/10/16 12/10/16 16:45 17:00 17:46 Temperature Pulse Rate Respiratory Rate Blood Pressure 129/80 125/71 115/79 O2 Sat by Pulse 92 97 100 Oximetry - Reevaluation(s) Reevaluation #1: 12/10/16 16:47 Morphine, Zofran, normal saline and protonic IV ordered ED Medical Decision Making - Lab Data Result diagrams: 12/10/16 14:32 12/10/16 14:32 Lab Results 12/10/16 12/10/16 12/10/16 Range/Units 14:32 14:32 16:04 WBC 26.0 H (4.5-11.0) K/mm3 RBC 3.35 L (3.65-5.03) M/mm3 Hgb 9.2 L (11.8-15.2) gm/dl Hct 28.2 L (35.5-45.6) % MCV 84 (84-94) fl MCH 27 L (28-32) pg MCHC 33 (32-34) % RDW 14.3 (13.2-15.2) % Plt Count 714 H (140-440) K/mm3 Add Manual Diff Complete Total Counted 200 Seg Neuts % (Manual) 93.0 H (40.0-70.0) % Band Neutrophils % 0 % Lymphocytes % (Manual) 5.0 L (13.4-35.0) % Reactive Lymphs % (Man) 0 % Monocytes % (Manual) 1.5 (0.0-7.3) % Eosinophils % (Manual) 0 (0.0-4.3) % Basophils % (Manual) 0.5 (0.0-1.8) % Metamyelocytes % 0 % Myelocytes % 0 % Promyelocytes % 0 % Blast Cells % 0 % Nucleated RBC % Not Reportable Seg Neutrophils # Man 24.2 H (1.8-7.7) K/mm3 Band Neutrophils # 0.0 K/mm3 Lymphocytes # (Manual) 1.3 (1.2-5.4) K/mm3 Abs React Lymphs (Man) 0.0 K/mm3 Monocytes # (Manual) 0.4 (0.0-0.8) K/mm3 Eosinophils # (Manual) 0.0 (0.0-0.4) K/mm3 Basophils # (Manual) 0.1 (0.0-0.1) K/mm3 Metamyelocytes # 0.0 K/mm3 Myelocytes # 0.0 K/mm3 Promyelocytes # 0.0 K/mm3 Blast Cells # 0.0 K/mm3 WBC Morphology Not Reportable Hypersegmented Neuts Not Reportable Hyposegmented Neuts Not Reportable Hypogranular Neuts Not Reportable Smudge Cells Not Reportable Toxic Granulation Not Reportable Toxic Vacuolation Not Reportable Dohle Bodies Not Reportable Pelger-Huet Anomaly Not Reportable Khang Rods Not Reportable Platelet Estimate Consistent w auto Clumped Platelets Not Reportable Plt Clumps, EDTA Not Reportable Large Platelets Not Reportable Giant Platelets Not Reportable Platelet Satelliting Not Reportable Plt Morphology Comment Not Reportable RBC Morphology Not Reportable Dimorphic RBCs Not Reportable Polychromasia Not Reportable Hypochromasia Not Reportable Poikilocytosis Not Reportable Anisocytosis 1+ Microcytosis Not Reportable Macrocytosis Not Reportable Spherocytes Not Reportable Pappenheimer Bodies Not Reportable Sickle Cells Not Reportable Target Cells Not Reportable Tear Drop Cells Not Reportable Ovalocytes Not Reportable Helmet Cells Not Reportable Barr-Scenic Bodies Not Reportable Archie Rings Not Reportable [employer] Cells Not Reportable Bite Cells Not Reportable Crenated Cell Not Reportable Elliptocytes Not Reportable Acanthocytes (Spur) Not Reportable Rouleaux Not Reportable Hemoglobin C Crystals Not Reportable Schistocytes Not Reportable Malaria parasites Not Reportable Jean Bodies Not Reportable Hem Pathologist Commnt No Sodium 139 (137-145) mmol/L Potassium 4.0 (3.6-5.0) mmol/L Chloride 98.2 (98-107) mmol/L Carbon Dioxide 26 (22-30) mmol/L Anion Gap 19 mmol/L BUN 8 L (9-20) mg/dL Creatinine 0.5 L (0.8-1.5) mg/dL Estimated GFR > 60 ml/min BUN/Creatinine Ratio 16.00 % Glucose 141 H (75-100) mg/dL Lactic Acid 1.40 (0.7-2.0) mmol/L Calcium 9.7 (8.4-10.2) mg/dL Total Bilirubin 0.50 (0.1-1.2) mg/dL AST 21 (5-40) units/L ALT 16 (7-56) units/L Alkaline Phosphatase 66 (35-129) units/L Total Protein 6.9 (6.3-8.2) g/dL Albumin 3.7 L (3.9-5) g/dL Albumin/Globulin Ratio 1.2 % Lipase 19 (13-60) units/L - Radiology Data Radiology results: report reviewed CT abdomen and pelvis IV contrast: Wall irregularity with surrounding edema and stranding of bowel and a duodenal bulb may be secondary to duodenitis and/or ulceration. No ed pneumoperitoneum or focal fluid collection to suggest abscess formation. Fluid-filled distal esophagus may be secondary to infectious /inflammatory etiology - Medical Decision Making Patient has a significant leukocytosis which was also present during his initial admission on November 25. This improved with treatment and decreased to 10 prior to discharge. Patient will be readmitted to the hospital due to exacerbation of symptoms likely secondary to med noncompliance. The leukocytosis could be due to stress reaction. UA has been ordered and pending and CT abdomen and pelvis with IV contrast has been ordered - Differential Diagnosis peptic ulcer disease, esophagitis, pancreatitis, hepatitis Critical Care Time: No Critical care attestation.: If time is entered above; I have spent that time in minutes in the direct care of this critically ill patient, excluding procedure time. ED Disposition Clinical Impression: Coffee ground emesis, Erosive esophagitis, PUD (peptic ulcer disease), Leukocytosis, Increased platelet count, Chronic anemia Disposition: OP ADMITTED IP TO THIS HOSP Is pt being admited?: Yes Condition: Stable Time of Disposition: 16:52 (Dr Karimi/hosp)
[2016-12-10] MEDS ORDERED: NACL ONE (16:53)
[2016-12-10] MEDS ORDERED: ZOFRAN IV PRN (17:15)
[2016-12-10] MEDS ORDERED: DULCOLAX PR PRN (17:15)
[2016-12-10] MEDS ORDERED: MILK OF MAGNESIA PO PRN (17:15)
[2016-12-10] MEDS ORDERED: TYLENOL PO PRN (17:15)
--- NOTE | 2016-12-10 17:28 | Admit Criteria Form ---
Admission Criteria Documentation: ABDOMINAL PAIN Clinical Indications for Admission to Inpatient Care (Place 'X' for any and all applicable criteria): Admission is indicated for ANY ONE of the following(1)(2)(3)(4)(5): [X ]I. Inpatient admission required rather than observation care (Also use Abdominal Pain: Observation Care, as appropriate) because of ANY ONE of the following: [ ]a) Severe pain requiring acute inpatient management [X ]b) Identification of etiology/finding that requires inpatient care (eg, aortic dissection, free air) [ ]c) Absent bowel sounds with complete ileus(6) [ ]d) Suspected toxic megacolon [ ]e) Severe electrolyte abnormalities requiring inpatient care [ ]f) High fever or infection requiring inpatient admission as indicated by ANY ONE of following(7)(8): [ ] i) Appropriate outpatient or observational care antimicrobial treatment unavailable, not effective, or not feasible [ ] ii) Documented bacteremia [ ] iii) Temperature > 104.9 degrees F (oral) [ ] iv) T >103.1 F (oral) or < 96.8 F(rectal) that does not respond to all emergency treatment measures [ ]g) Signs of intestinal obstruction [B] [ ]h) Hemodynamic instability [ ]i) IV fluid to replace significant ongoing losses (greater than 3 L/m2 per day) (12)(13) [ ]j) Percutaneous or open drainage (eg, abscess, biliary tract ) procedures [ ]k) Parenteral nutrition regimen that must be implemented on inpatient basis [ X]l) Other condition,treatment or monitoring requiring inpatient admission. [ ]II. Peritoneal signs present [ ]III. Surgery needed that cannot be performed on an ambulatory basis. [ ]IV. Evaluation requires patient to not eat or drink for extended period ( eg, more than 24 hours). [ ]V. Contraindications and/or Inappropriate clinical situations for Observational Care in patients with abdominal pain, when ANY ONE of the following is required: [ ]a) Thorough evaluation is required to prevent catastrophic events due to delays in diagnosing (e.g.Mesenteric ischemia) 1,3 [ ]b) Patient with severe pathology or with chronic symptoms unlikely to improve in the ED stay (3) [ ]. General contraindications and/or Inappropriate clinical situations for Observational Care in patients with abdominal pain, when ANY ONE of the following is required: [ ]a) Prediction of prolongation of LOS based on ANY ONE of the following may be considered as a contraindication for observational care 2, 3, 4, 5, 6, 7, 8, 9, 10, 11 [ ]i) Age > 65 yrs. [ ]ii) Patient arriving by ambulance [ ]iii) Patient with high acuity [ ]iv) Patient requiring vital sign monitoring [ ]v) Patient on IV medication [ ]b) Systolic blood pressures 180mmHg 3,12 [ ]c) Patient with altered mental status including delirium and other alteration of consciousness, (3) [ ]d) Patient whose discharge disposition will be to a longterm home or rehabilitation home should not be managed in Emergency Department Observation Unit. CMS rule requires 3 days hospital stay before such placement.3,13 [ ]e) Patient with failure to thrive due to broad array of etiologies 3,16,17 [ ]f) Inability to ambulate 3,14 Extended stay beyond goal length of stay may be needed for(2)(3): [ ]a) Persistent abdominal pain with suspected intra-abdominal process [ ]b) Diagnosed condition requiring continued stay (e.g., pancreatitis, complicated diverticulitis) [ ]c) Surgery (e.g., colectomy) The original [facility] content created by [employer] has been revised. The portions of the content which have been revised are identified through the use of italic text or in bold, and [facility] has neither reviewed nor approved the modified material.All other unmodified content is copyright [facility]. Please see references footnoted in the original [facility] edition 2016 Admission Criteria Met: Yes
--- NOTE | 2016-12-10 17:39 | History and Physical Report ---
History of Present Illness Date of examination: 12/10/16 Date of admission: 12/10/2016 Chief complaint: Abdominal pain and Coffee ground emesis History of present illness: Patient is a 43 year old white male with a past medical history of mental retardation, HTN, stomach ulcers,hital hernia, ulcerative esophagitis who presents today complaining of sharp, epigastric abdominal pain since this morning duration. The abdominal pain has been gradually worsening. The pain is located in the epigastric region and left lower quadrant of the abdomen. It does not radiate. The pain is relatively constant throughout the day and night but does vary in severity. Mr. Livingston rates the pain as 9/10 at its worst. Mr. Livingston describes the pain as a sharp, burning pain. He has not tried taking any medicines to relieve the pain. The pain is not associated with food or eating, although Mr. Livingston does endorse occasional heartburn. He has experienced coffee ground emesis and nausea with the abdominal pain. He denies bloody bowel movement. Patient was here 1o days ago for similar symptoms and went home with PPI but he lost the prescription. Patient is mentally challenged, therefore is a poor historian. Past History Past Medical History: GERD, hypertension, other (Mental retardation, PUD, Hital hernia) Past Surgical History: No surgical history Social history: single Family history: no significant family history Medications and Allergies Allergies Allergy/AdvReac Type Severity Reaction Status Date / Time No Known Allergies Allergy Verified 12/10/16 14:27 Home Medications Medication Instructions Recorded Confirmed Last Taken Type No Known Home Medications [No 12/10/16 12/10/16 Unknown History Reported Home Medications] Active Meds: Active Medications Acetaminophen (Tylenol) 650 mg PO Q4H PRN PRN Reason: Pain MILD(1-3)/Fever >100.5/MALDONADO Bisacodyl (Dulcolax) 10 mg MS QDAY PRN PRN Reason: Constipation unrelieved by MOM Sodium Chloride (Nacl 0.9% 1000 Ml) 1,000 mls @ 999 mls/hr IV BOLUS ONE Stop: 12/10/16 17:36 Last Admin: 12/10/16 16:45 Dose: 999 mls/hr Dextrose/Sodium Chloride (D5ns) 1,000 mls @ 75 mls/hr IV DIRECT KAYLEE Pantoprazole Sodium 80 mg/ (Sodium Chloride) 100 mls @ 10 mls/hr IV Q10H KAYLEE PRN Reason: 8 MG/HR Magnesium Hydroxide (Milk Of Magnesia) 30 ml PO Q4H PRN PRN Reason: Constipation Ondansetron HCl (Zofran) 4 mg IV Q8H PRN PRN Reason: N/V unrelieved by Reglan Review of Systems Constitutional: no weight loss, no weight gain, no chills, no sweats Ears, nose, mouth and throat: no tinnitis, no decreased hearing, no nose pain Cardiovascular: no chest pain, no orthopnea, no palpitations Respiratory: no cough, no cough with sputum, no excessive sputum Gastrointestinal: abdominal pain, vomiting, coffee ground emesis Genitourinary Male: no dysuria, no hematuria, no flank pain Rectal: no pain, no incontinence Musculoskeletal: no neck stiffness, no neck pain, no shooting arm pain, no arm numbness/tingling Integumentary: no rash, no pruritis, no redness Neurological: no weakness, no parathesias, no numbness, no tingling Psychiatric: anxiety, other (Mental retardation) Endocrine: no cold intolerance, no heat intolerance, no polyphagia Exam - Constitutional Vitals: Temp Pulse Resp BP Pulse Ox 98.9 F 93 H 18 120/77 99 12/10/16 14:22 12/10/16 14:22 12/10/16 16:34 12/10/16 16:43 12/10/16 14:22 General appearance: Present: no acute distress - EENT Eyes: Present: PERRL, EOM intact ENT: hearing intact, clear oral mucosa, dentition normal - Neck Neck: Present: supple, normal ROM - Respiratory Respiratory effort: normal - Cardiovascular Heart Sounds: Present: S1 & S2. Absent: rub, click - Extremities Extremities: pulses symmetrical, No edema Peripheral Pulses: within normal limits - Abdominal General gastrointestinal: Present: tender, non-distended Localized gastrointestinal: guarding: LLQ, epigastric periumbilical - Rectal Rectal Exam: deferred - Integumentary Integumentary: Present: clear, warm, dry - Musculoskeletal Musculoskeletal: strength equal bilaterally - Psychiatric Psychiatric: appropriate mood/affect, intact judgment & insight - Neurologic Neurologic: CNII-XII intact, moves all extremities Results - Labs CBC & Chem 7: 12/10/16 14:32 12/10/16 14:32 Labs: Laboratory Last Values WBC 26.0 K/mm3 (4.5-11.0) H 12/10/16 14:32 RBC 3.35 M/mm3 (3.65-5.03) L 12/10/16 14:32 Hgb 9.2 gm/dl (11.8-15.2) L 12/10/16 14:32 Hct 28.2 % (35.5-45.6) L 12/10/16 14:32 MCV 84 fl (84-94) 12/10/16 14:32 MCH 27 pg (28-32) L 12/10/16 14:32 MCHC 33 % (32-34) 12/10/16 14:32 RDW 14.3 % (13.2-15.2) 12/10/16 14:32 Plt Count 714 K/mm3 (140-440) H 12/10/16 14:32 Sodium 139 mmol/L (137-145) 12/10/16 14:32 Potassium 4.0 mmol/L (3.6-5.0) 12/10/16 14:32 Chloride 98.2 mmol/L (98-107) 12/10/16 14:32 Carbon Dioxide 26 mmol/L (22-30) 12/10/16 14:32 Anion Gap 19 mmol/L 12/10/16 14:32 BUN 8 mg/dL (9-20) L 12/10/16 14:32 Creatinine 0.5 mg/dL (0.8-1.5) L 12/10/16 14:32 Estimated GFR > 60 ml/min 12/10/16 14:32 BUN/Creatinine Ratio 16.00 % 12/10/16 14:32 Glucose 141 mg/dL (75-100) H 12/10/16 14:32 Lactic Acid 1.40 mmol/L (0.7-2.0) 12/10/16 16:04 Calcium 9.7 mg/dL (8.4-10.2) 12/10/16 14:32 Total Bilirubin 0.50 mg/dL (0.1-1.2) 12/10/16 14:32 AST 21 units/L (5-40) 12/10/16 14:32 ALT 16 units/L (7-56) 12/10/16 14:32 Alkaline Phosphatase 66 units/L (35-129) 12/10/16 14:32 Total Protein 6.9 g/dL (6.3-8.2) 12/10/16 14:32 Albumin 3.7 g/dL (3.9-5) L 12/10/16 14:32 Albumin/Globulin Ratio 1.2 % 12/10/16 14:32 Lipase 19 units/L (13-60) 12/10/16 14:32 - Imaging and Cardiology CT scan - abdomen: pending CT scan - pelvis: pending Assessment and Plan Assessment and plan: ASSESSMENT/PLAN Upper GI bleed - Iv protonix - Gi consult - patient is non compliant with his protonix - Recent Endoscopy showed erosive gastritis Abdominal Pain CT abdomen/pelvis pending Pain controlled with morphine we will continue to monitor. Leukocytosis Patient had blood cultures drawn We will recheck CBC in AM Mental Retardation follow up primary care. Hypertension will continue home medication DVT/GI Prophylaxis Lovenox/Protonix drip Advance Directives: Yes VTE prophylaxis?: Chemical Plan of care discussed with patient/family: Yes
--- NOTE | 2016-12-10 17:52 | Cat Scan Report ---
FINAL REPORT EXAM: CT ABDOMEN PELVIS W CON HISTORY: leukocytosis, vomriting, PUD and esophagitis TECHNIQUE: CT images are acquired through the Abdomen and Pelvis in arterial and delayed venous phases following intravenous administration of 100 cc Omnipaque 300 contrast. Transaxial, coronal and sagittal reformations are provided. PRIORS: None FINDINGS: Partially visualized lungs are unremarkable. The liver, gallbladder, pancreas, spleen, and adrenal glands are normal. Kidneys show no worrisome lesions, hydronephrosis, or calculi. Urinary bladder is normal. Gastric distension. Fluid-filled distal esophagus. There is thickening and irregularity of the duodenal bulb wall on axial series 3, image 56 and coronal image 61. Mild surrounding stranding and edema best demonstrated on coronal imaging. No ed pneumoperitoneum. Small and large bowel are normal in caliber. Appendix is normal. No abdominal ascites or lymphadenopathy identified. Aorta is normal in course and caliber. Superficial soft tissues are unremarkable. No acute or aggressive appearing skeletal findings. IMPRESSION: Wall irregularity with surrounding edema and stranding involving the duodenal bulb may be secondary to duodenitis and/or ulceration. No ed pneumoperitoneum or focal fluid collection to suggest abscess formation. Fluid-filled distal esophagus may also be secondary to infectious/inflammatory etiology.
[2016-12-10] MEDS: PROTONIX 80 MG in NACL 0.9% 100 ML IV SCH (18:02)
[2016-12-10 18:32] LABS: Anisocytosis 1+; Basophils % (Manual) 0.5 % (0.0-1.8); Blastocytes % (Manual) 0 %; Diff Status Complete; Eosinophils % (Manual) 0 % (0.0-4.3); Platelet Estimate Consistent w Auto
[2016-12-11] MEDS: PROTONIX 80 MG in NACL 0.9% 100 ML IV SCH (03:52)
[2016-12-11 06:18] LABS: Basophils % (Auto) 0.5 % (0.0-1.8); Eosinophils % (Auto) 1.2 % (0.0-4.3); Hematocrit 27.2 % (35.5-45.6); Hemoglobin 8.8 gm/dl (11.8-15.2); Mean Corpuscular HGB Conc 32 % (32-34); Mean Corpuscular Hemoglobin 27 pg (28-32); Mean Corpuscular Volume 84 fl (84-94); Platelet Count 611 K/mm3 (140-440); Red Blood Count 3.24 M/mm3 (3.65-5.03); Red Cell Distribution Width 14.5 % (13.2-15.2); White Blood Count 16.9 K/mm3 (4.5-11.0)
[2016-12-11 06:42] LABS: Alanine Aminotransferase 12 units/L (7-56); Albumin 3.1 g/dL (3.9-5); Albumin/Globulin Ratio 1.1 %; Alkaline Phosphatase 60 units/L (35-129); Blood Urea Nitrogen 9 mg/dL (9-20); Carbon Dioxide 25 mmol/L (22-30); Glucose 112 mg/dL (75-100); Total Protein 5.9 g/dL (6.3-8.2)
[2016-12-11 06:43] LABS: Anion Gap 16 mmol/L; Chloride 102.1 mmol/L (98-107); Potassium 4.3 mmol/L (3.6-5.0); Sodium 139 mmol/L (137-145)
--- NOTE | 2016-12-11 10:26 | Gastroenterology Consultation ---
History of Present Illness - Reason for Consult Consult date: 12/11/16 coffee ground emesis Requesting physician: CARI HAYNES - History of Present Illness Mr Jackson is a 41 yo male with developmental/mental delay, who presents with recurrent episode of abdominal pain and n/v. Pt known to GI service, recently admitted for similar symptoms. EGD at that time was performed showing severe ulcerative esophagitis, and large ulcer in antrum. He has not been compliant with medications at home. No further n/v since admission. Reports having pain after eating, similar to previous episodes. Denies melena. H/H and vitals stable. Past History Past Medical History: GERD, hypertension, other (Mental retardation, PUD, Hital hernia) Past Surgical History: No surgical history Social history: single Family history: no significant family history Medications and Allergies Allergies Allergy/AdvReac Type Severity Reaction Status Date / Time No Known Allergies Allergy Verified 12/10/16 14:27 Home Medications Medication Instructions Recorded Confirmed Last Taken Type No Known Home Medications [No 12/10/16 12/10/16 Unknown History Reported Home Medications] Active Meds: Active Medications Acetaminophen (Tylenol) 650 mg PO Q4H PRN PRN Reason: Pain MILD(1-3)/Fever >100.5/MALDONADO Bisacodyl (Dulcolax) 10 mg MO QDAY PRN PRN Reason: Constipation unrelieved by MOM Dextrose/Sodium Chloride (D5ns) 1,000 mls @ 75 mls/hr IV DIRECT KAYLEE Pantoprazole Sodium 80 mg/ (Sodium Chloride) 100 mls @ 10 mls/hr IV Q10H KAYLEE PRN Reason: 8 MG/HR Last Admin: 12/11/16 03:52 Dose: 8 mg/hr, 10 mls/hr Magnesium Hydroxide (Milk Of Magnesia) 30 ml PO Q4H PRN PRN Reason: Constipation Ondansetron HCl (Zofran) 4 mg IV Q8H PRN PRN Reason: N/V unrelieved by Reglan Review of Systems - Review of Systems All systems: negative (per HPI) Exam - Constitutional Vital Signs: Temp Pulse Resp BP Pulse Ox 97.9 F 100 H 18 106/70 97 12/11/16 08:00 12/11/16 08:00 12/11/16 08:00 12/11/16 08:00 12/11/16 08:00 General appearance: no acute distress, disheveled - EENT Eyes: PERRL, EOM intact ENT: hearing intact, poor dentition - Neck Neck: supple - Respiratory Respiratory effort: normal Respiratory: bilateral: CTA - Cardiovascular Rhythm: regular Heart Sounds: Present: S1 & S2 Extremities: No edema - Gastrointestinal General gastrointestinal: Present: soft, non-tender, non-distended, normal bowel sounds - Integumentary Integumentary: Present: clear, warm - Musculoskeletal Musculoskeletal: normal - Neurologic Neurological: alert and oriented x3 - Labs CBC & Chem 7: 12/11/16 13:31 12/11/16 05:56 Lab Results: Laboratory Results - last 24 hr 12/11/16 12/11/16 05:56 05:56 WBC 16.9 H RBC 3.24 L Hgb 8.8 L Hct 27.2 L MCV 84 MCH 27 L MCHC 32 RDW 14.5 Plt Count 611 H Lymph % (Auto) 12.5 L [place] % (Auto) 7.1 Eos % (Auto) 1.2 Baso % (Auto) 0.5 Lymph # 2.1 [place] # 1.2 H Eos # 0.2 Baso # 0.1 Seg Neutrophils % 78.7 H Seg Neutrophils # 13.3 H Sodium 139 Potassium 4.3 Chloride 102.1 Carbon Dioxide 25 Anion Gap 16 BUN 9 Creatinine 0.6 L Estimated GFR > 60 BUN/Creatinine Ratio 15.00 Glucose 112 H Calcium 9.0 Total Bilirubin 0.60 AST 11 ALT 12 Alkaline Phosphatase 60 Total Protein 5.9 L Albumin 3.1 L Albumin/Globulin Ratio 1.1 Assessment and Plan Mr Jackson is a 41 yo male who presents with abd pain and coffee ground emesis. Pt similarly presented to the hospital a few weeks ago and underwent EGD showing severe ulcerative esophagitis and large ulcer in antrum. H/H and vitals stable, BUN normal. Reviewed pathology results, and esophageal bx's showed rare fungal organisms (did not comment on speciation, and unable to reach pathology department today). Gastric ulcer biopsies also showed intestinal metaplasia. No signs of active bleeding at present time. -PPI BID dosing -okay to start diet -empiric treatment for possible annamarie given esophageal path results (attempt to get further details when pathologist available) -will need repeat EGD in ~4 weeks. Hold off on endoscopy while inpt unless he shows signs of further bleeding.
--- NOTE | 2016-12-11 10:34 | Progress Note ---
Assessment and Plan Assessment and plan: Acute upper GI bleed. Admitted. Obtain H/H q 8h. Hemoglobin 8.8. Started on Protonix drip, NPO. news director to evaluate. Leukocytosis. Will monitor. No signs of infection, afebrile. Hypertension. BP stable Intellectual disability. DVT prophylaxis. No anticoagulation because of active GI bleed Full code status Hospitalist Physical - Physical exam Narrative exam: Appearance: Not in acute distress, obese, HEENT: normocephalic, atraumatic Neck : supple, no JVD Lungs: Clear to auscultation bilaterally, no crackles or wheeze Heart : S1 and S2 regular, no murmurs, rubs or gallop Abdomen: soft,mild epigastric tenderness, non-distended, normal bowel sounds Extremities: No edema, no clubbing, no cyanosis Neuro: Awake, alert, oriented 3, moves all ext, - Constitutional Vitals: Temp Pulse Resp BP Pulse Ox 97.9 F 100 H 18 106/70 97 12/11/16 08:00 12/11/16 08:00 12/11/16 08:00 12/11/16 08:00 12/11/16 08:00 General appearance: Present: no acute distress Results - Labs CBC & Chem 7: 12/11/16 05:56 12/11/16 05:56 Labs: Laboratory Last Values WBC 16.9 K/mm3 (4.5-11.0) H 12/11/16 05:56 RBC 3.24 M/mm3 (3.65-5.03) L 12/11/16 05:56 Hgb 8.8 gm/dl (11.8-15.2) L 12/11/16 05:56 Hct 27.2 % (35.5-45.6) L 12/11/16 05:56 MCV 84 fl (84-94) 12/11/16 05:56 MCH 27 pg (28-32) L 12/11/16 05:56 MCHC 32 % (32-34) 12/11/16 05:56 RDW 14.5 % (13.2-15.2) 12/11/16 05:56 Plt Count 611 K/mm3 (140-440) H 12/11/16 05:56 Lymph % (Auto) 12.5 % (13.4-35.0) L 12/11/16 05:56 [place] % (Auto) 7.1 % (0.0-7.3) 12/11/16 05:56 Eos % (Auto) 1.2 % (0.0-4.3) 12/11/16 05:56 Baso % (Auto) 0.5 % (0.0-1.8) 12/11/16 05:56 Lymph # 2.1 K/mm3 (1.2-5.4) 12/11/16 05:56 [place] # 1.2 K/mm3 (0.0-0.8) H 12/11/16 05:56 Eos # 0.2 K/mm3 (0.0-0.4) 12/11/16 05:56 Baso # 0.1 K/mm3 (0.0-0.1) 12/11/16 05:56 Add Manual Diff Complete 12/10/16 14:32 Total Counted 200 12/10/16 14:32 Seg Neutrophils % 78.7 % (40.0-70.0) H 12/11/16 05:56 Seg Neuts % (Manual) 93.0 % (40.0-70.0) H 12/10/16 14:32 Band Neutrophils % 0 % 12/10/16 14:32 Lymphocytes % (Manual) 5.0 % (13.4-35.0) L 12/10/16 14:32 Reactive Lymphs % (Man) 0 % 12/10/16 14:32 Monocytes % (Manual) 1.5 % (0.0-7.3) 12/10/16 14:32 Eosinophils % (Manual) 0 % (0.0-4.3) 12/10/16 14:32 Basophils % (Manual) 0.5 % (0.0-1.8) 12/10/16 14:32 Metamyelocytes % 0 % 12/10/16 14:32 Myelocytes % 0 % 12/10/16 14:32 Promyelocytes % 0 % 12/10/16 14:32 Blast Cells % 0 % 12/10/16 14:32 Nucleated RBC % Not Reportable 12/10/16 14:32 Seg Neutrophils # 13.3 K/mm3 (1.8-7.7) H 12/11/16 05:56 Seg Neutrophils # Man 24.2 K/mm3 (1.8-7.7) H 12/10/16 14:32 Band Neutrophils # 0.0 K/mm3 12/10/16 14:32 Lymphocytes # (Manual) 1.3 K/mm3 (1.2-5.4) 12/10/16 14:32 Abs React Lymphs (Man) 0.0 K/mm3 12/10/16 14:32 Monocytes # (Manual) 0.4 K/mm3 (0.0-0.8) 12/10/16 14:32 Eosinophils # (Manual) 0.0 K/mm3 (0.0-0.4) 12/10/16 14:32 Basophils # (Manual) 0.1 K/mm3 (0.0-0.1) 12/10/16 14:32 Metamyelocytes # 0.0 K/mm3 12/10/16 14:32 Myelocytes # 0.0 K/mm3 12/10/16 14:32 Promyelocytes # 0.0 K/mm3 12/10/16 14:32 Blast Cells # 0.0 K/mm3 12/10/16 14:32 WBC Morphology Not Reportable 12/10/16 14:32 Hypersegmented Neuts Not Reportable 12/10/16 14:32 Hyposegmented Neuts Not Reportable 12/10/16 14:32 Hypogranular Neuts Not Reportable 12/10/16 14:32 Smudge Cells Not Reportable 12/10/16 14:32 Toxic Granulation Not Reportable 12/10/16 14:32 Toxic Vacuolation Not Reportable 12/10/16 14:32 Dohle Bodies Not Reportable 12/10/16 14:32 Pelger-Huet Anomaly Not Reportable 12/10/16 14:32 Khang Rods Not Reportable 12/10/16 14:32 Platelet Estimate Consistent w auto 12/10/16 14:32 Clumped Platelets Not Reportable 12/10/16 14:32 Plt Clumps, EDTA Not Reportable 12/10/16 14:32 Large Platelets Not Reportable 12/10/16 14:32 Giant Platelets Not Reportable 12/10/16 14:32 Platelet Satelliting Not Reportable 12/10/16 14:32 Plt Morphology Comment Not Reportable 12/10/16 14:32 RBC Morphology Not Reportable 12/10/16 14:32 Dimorphic RBCs Not Reportable 12/10/16 14:32 Polychromasia Not Reportable 12/10/16 14:32 Hypochromasia Not Reportable 12/10/16 14:32 Poikilocytosis Not Reportable 12/10/16 14:32 Anisocytosis 1+ 12/10/16 14:32 Microcytosis Not Reportable 12/10/16 14:32 Macrocytosis Not Reportable 12/10/16 14:32 Spherocytes Not Reportable 12/10/16 14:32 Pappenheimer Bodies Not Reportable 12/10/16 14:32 Sickle Cells Not Reportable 12/10/16 14:32 Target Cells Not Reportable 12/10/16 14:32 Tear Drop Cells Not Reportable 12/10/16 14:32 Ovalocytes Not Reportable 12/10/16 14:32 Helmet Cells Not Reportable 12/10/16 14:32 [place] Bodies Not Reportable 12/10/16 14:32 [place] Rings Not Reportable 12/10/16 14:32 [place] Cells Not Reportable 12/10/16 14:32 Bite Cells Not Reportable 12/10/16 14:32 Crenated Cell Not Reportable 12/10/16 14:32 Elliptocytes Not Reportable 12/10/16 14:32 Acanthocytes (Spur) Not Reportable 12/10/16 14:32 Rouleaux Not Reportable 12/10/16 14:32 Hemoglobin C Crystals Not Reportable 12/10/16 14:32 Schistocytes Not Reportable 12/10/16 14:32 Malaria parasites Not Reportable 12/10/16 14:32 Jean Bodies Not Reportable 12/10/16 14:32 Hem Pathologist Commnt No 12/10/16 14:32 Sodium 139 mmol/L (137-145) 12/11/16 05:56 Potassium 4.3 mmol/L (3.6-5.0) 12/11/16 05:56 Chloride 102.1 mmol/L (98-107) 12/11/16 05:56 Carbon Dioxide 25 mmol/L (22-30) 12/11/16 05:56 Anion Gap 16 mmol/L 12/11/16 05:56 BUN 9 mg/dL (9-20) 12/11/16 05:56 Creatinine 0.6 mg/dL (0.8-1.5) L 12/11/16 05:56 Estimated GFR > 60 ml/min 12/11/16 05:56 BUN/Creatinine Ratio 15.00 % 12/11/16 05:56 Glucose 112 mg/dL (75-100) H 12/11/16 05:56 Lactic Acid 1.40 mmol/L (0.7-2.0) 12/10/16 16:04 Calcium 9.0 mg/dL (8.4-10.2) 12/11/16 05:56 Total Bilirubin 0.60 mg/dL (0.1-1.2) 12/11/16 05:56 AST 11 units/L (5-40) 12/11/16 05:56 ALT 12 units/L (7-56) 12/11/16 05:56 Alkaline Phosphatase 60 units/L (35-129) 12/11/16 05:56 Total Protein 5.9 g/dL (6.3-8.2) L 12/11/16 05:56 Albumin 3.1 g/dL (3.9-5) L 12/11/16 05:56 Albumin/Globulin Ratio 1.1 % 12/11/16 05:56 Lipase 19 units/L (13-60) 12/10/16 14:32
[2016-12-11] MEDS: D5NS 1,000 ML IV SCH (11:57)
[2016-12-11 14:15] LABS: Hematocrit 27.6 % (35.5-45.6); Hemoglobin 8.9 gm/dl (11.8-15.2)
[2016-12-11] MEDS ORDERED: CHLORASEPTIC MM PRN (16:17)
[2016-12-11] MEDS: NORCO 5/325 PO PRN (16:35)
[2016-12-11] MEDS: PROTONIX PO SCH (21:13)
[2016-12-11 22:42] LABS: Hematocrit 26.8 % (35.5-45.6); Hemoglobin 8.7 gm/dl (11.8-15.2)
[2016-12-12] MEDS: D5NS 1,000 ML IV SCH (00:19)
[2016-12-12 04:45] LABS: Bilirubin,Urine NEG (Negative); Blood,Urine NEG (Negative); Ketones,Urine NEG (Negative); Leukocyte Esterase,Urine NEG (Negative); Mucus,Urine FEW /HPF; Nitrite,Urine NEG (Negative); Protein,Urine <15 mg/dL mg/dL (Negative)
[2016-12-12 08:13] LABS: Hematocrit 26.1 % (35.5-45.6); Hemoglobin 8.5 gm/dl (11.8-15.2)
--- NOTE | 2016-12-12 08:44 | Discharge Summary ---
Providers - Providers Date of Admission: 12/10/16 17:16 Date of discharge: 12/12/16 Attending physician: NICHOL UGALDE 12/10/16 17:53 Consult to Physician [CONS] Routine Consulting Provider: JEWELS MORILLO Reason For Exam: coffee ground emesis and leukocytosis Place consult to:: DR. Yojana MORILLO Notified:: [facility] Phone number called:: [phone] Was contact made?: Yes If yes, spoke with:: DENNYS Time called:: 18:22 Primary care physician: DIALYSIS EQUIPMENT TECHNICIAN Hospitalization Condition: Good Disposition: DISCHARGED TO HOME OR SELFCARE - Discharge Diagnoses (1) Acute upper GI bleed Status: Acute Exam - Constitutional Vitals: Temp Pulse Resp BP Pulse Ox 99.8 F H 98 H 20 93/50 98 12/11/16 23:00 12/11/16 23:00 12/11/16 23:00 12/11/16 23:00 12/11/16 23:00 Plan Activity: no restrictions Diet: other (soft, cardiac diet) Additional Instructions: 1.Follow up with PCP or [facility] in 1 week. 2.Follow up with Dr. Morillo in 1 week to arrange repeat EGD Follow up with: PRIMARY CARE, [Primary Care Provider] - 7 Days Prescriptions: Famotidine [Pepcid] 20 mg PO BID #60 tablet Pantoprazole [Protonix TAB] 40 mg PO BID #60 tablet Phenol 1.4% [Chloraseptic] 1 spray MM PRN PRN #1 bottle PRN Reason: Sore Throat
[2016-12-12] MEDS: NORCO 5/325 PO PRN (09:43)
[2016-12-12] MEDS: PROTONIX PO SCH (09:44)
[2016-12-12 11:13] VITALS: BP 120/70
== END 2016-12-12 11:15 | disposition home or self-care (01) | DRG 378 ==
LOC: ED 14:12 → 3A 17:16
PROVIDERS: ADMIT Internal Medicine; ATTEND Internal Medicine
DX: K92.2 Gastrointestinal hemorrhage, unspecified (principal); K22.10 Ulcer of esophagus without bleeding; K92.0 Hematemesis; R10.9 Unspecified abdominal pain; I10 Essential (primary) hypertension; K21.9 Gastro-esophageal reflux disease without esophagitis; F79 Unspecified intellectual disabilities; Z71.89 Other specified counseling; E87.6 Hypokalemia; Z91.19 Patient's noncompliance with other medical treatment and regimen; D72.829 Elevated white blood cell count, unspecified; K44.9 Diaphragmatic hernia without obstruction or gangrene; F17.200 Nicotine dependence, unspecified, uncomplicated; D64.9 Anemia, unspecified; Z87.11 Personal history of peptic ulcer disease
CPT/HCPCS: 36415; 74177; 80053; 81001; 82140; 83690; 85007; 85014; 85018; 85025; 87040; 96374; 96375; C9113; J2270; J2405; J7030; J7042; Q9967